=== PATIENT | male | born 1945 | race Caucasian/White ===

== ENCOUNTER 2018-01-27 15:25 | Inpatient (IN) | payer MEDICARE, BC ==
--- OUTSIDE RECORDS SUMMARY | 2018-01-27 15:51 | XMS REPORT ---
:1945 External Reference #:[id number] Author Organization [facility] Address [address] [address] Phone [phone] Care Team Providers Name Role Phone Ruddy Dykes MD Primary Care Physician Unavailable Payers Type Date Identification Numbers Payment Provider Subscriber Medicare Primary Effective: Policy Number: Medicare Marcial Ta 2011 [id number] PayID: [id number] [address] [place] [address] Medigap Part B Effective: 2012 Policy Number: BS Facets Marcial Ta [id number] PayID: [id number] [address] [address] [place] [address] Problems Date Description Provider Status Onset: 05/17/2016 Malignant tumor of bronchus Jonna Cadena MD Active Onset: 05/17/2016 Chronic obstructive lung disease Jonna Cadena MD Active Onset: 06/06/2016 Atrial fibrillation Nehemias Rahman DO [facility] Active Family History Date Family Member(s) Problem(s) Comments General No Current Problems Father Hypertension Father [place] 68 [place]. mother at age 84. sister of brain tumor in her 40's. another 1/2 sister has had multiple PCI's Social History Type Date Description Comments Marital Status Lives With Occupation Retired worked for [employer] Cigarette Use Heavy tobacco smoker (more than 10 cigarettes/day) Cigarette Use Quit 39 days ago ETOH Use Denies alcohol use Recreational Drug Use Denies Drug Use Smoking Heavy tobacco smoker (more than 10 cigarettes/day) Daily Caffeine Consumes on average 3 cups of regular coffee per day Exercise Type/Frequency Does not exercise Allergies, Adverse Reactions, Alerts Date Description Reaction Status Severity Comments 05/03/2014 NKDA active Medications Medication Date Status Form Strength Qnty SIG Indications Ordering Provider Furosemide 11/21 Active Tablets 80mg 90tab 1 by mouth I50.9 Nehemias S. /2017 s everyday Rahman, DO [facility] Finasteride 05/16 Active Tablets 5mg 1 by mouth every day Spironolactone 12/13 Active Tablets 25mg 90tab 1 by mouth I48.91 Nehemias Barajas. s every day Rahman, DO [facility] Levitra Active Tablets 20mg as needed Unknown Simvastatin Active Tablets 20mg 1 by mouth Unknown every day Gabapentin Active Capsules 100mg 4 cap po twice daily Am/PM Dovonex Active Cream 0.005% use on effected area 2 x daily Metoprolol Active Tablets 100mg 225ta take 1 and Nehemias S. Tar bs 1/2 in the , and DO [facility] one at night Losartan Potassium Active 100mg 1 po qd Unknown Amlodipine Active Tablets 10mg 1 by mouth Unknown Bes every day Prazosin HCL Active Capsules 2mg 4 po qhs Trazodone HCL Active Tablets 50mg 1 tablet at Unknown / bedtime as needed Metformin HCL Active Tablets 500mg 2 po bid Unknown Xarelto Active Tablets 20mg 90tab 1 by mouth Nehemias S. s every day Rahman, DO [facility] Duloxetine HCL Active Caps DR 30mg take 1 Unknown Part capsule by mouth daily Lorazepam Active 1/4 tablet Unknown / po as needed Bupropion HCL ER Active Tablets 150mg 90tab 2 tablet po Unknown (XL) ER 24HR s daily Am Phytonandione 05/22 Hx Tablets 5mg Take 2 tabs Jonna /2015 today and 1 Surinder, - tablet in 12/04 the morning /2016 Clonazepam 05/16 Hx Tablets 0.5mg as needed - 12/04 Lovenox 12/25 Hx Solution 120mg/0.8 14uni Inject Nehemias S. ML ts subcutaneou Rahman, - sly twice DO [facility] 12/31 daily /2015 starting this evening 12/26/2015 until further instruction . Warfarin Sodium 12/25 Hx Tablets 5mg 30tab 1 tablet at Nehemias S. s night (Dr. Rahman, - Bael DO [facility] 12/04 adjusts Lasix 11/30 Hx Tablets 20mg 360ta take 4 I50.9 bs tablets by Josiah, - mouth daily DO [facility] 11/21 Xarelto 11/18 Hx Tablets 20mg 90tab 1 by mouth I48.91 s every day Josiah, - DO [facility] 12/25 High Blood 0000 Hx Unknown Pressure Pill /0000 - 11/16 High Cholesterol 00 Hx Unknown Pill /0000 - 11/16 Nightmare Pills 00/00 Hx Unknown /0000 - 11/16 Arthritis Pill 00/00 Hx Unknown /0000 - 11/16 Diabetic Pill 00/00 Hx Unknown /0000 - 11/16 Duloxetine 00/[address] 60mg 1 by mouth Unknown /0000 Part every day - 12/05 Hydrochlorothiazid 00/00 Hx Tablets 25mg 1 by mouth Unknown e /0000 every day - 11/30 Proscar 00/00 Hx Tablets 5mg 1 by mouth Unknown /0000 every day - 05/16 Clonazepam 00/00 Hx Tablets 0.5mg 1/4 tab Q Unknown /0000 days by - mouth as 11/20 Proscar 00/00 Hx Tablets 5mg 1 by mouth Unknown /0000 every day - 05/25 Medications Administered in Office Medication Date Status Form Strength Qnty SIG Indications Ordering Provider Depomedrol Administered Injection Usama F 40MG 017 MD Evelia Depomedrol Administered Injection Usama F 40MG 017 MD Evelia Technetium TC Administered Injection Nehemias S. 99M 016 DO Josiah Tetrofosmin, [facility] Per Unit Dose Up To 40 Millicuries Depomedrol Administered Injection Poornima 80MG 014 KAROLINA Syed Depomedrol Administered Injection Petros Wallace, 80MG 014 M.D. Vital Signs Date Vital Result Comment 12/31/2017 Height 67.5 inches 5'7.50" Heart Rate 89 /min BP Systolic 126 mmHg BP Diastolic 88 mmHg Respiratory Rate 16 /min Body Temperature 98.0 F Pain Level 5 12/11/2017 Height 67.5 inches 5'7.50" Weight 310.00 lb Heart Rate 100 /min BP Systolic 124 mmHg BP Diastolic 84 mmHg Body Temperature 97.7 F Pain Level 5 BMI (Body Mass Index) 47.8 kg/m2 11/21/2017 Height 68 inches 5'8" Weight 308.00 lb with shoes Heart Rate 66 /min BP Systolic Sitting 118 mmHg Rue lrg cuff BP Diastolic Sitting 80 mmHg Rue lrg cuff BP Systolic Standing 122 mmHg Rue lrg cuff BP Diastolic Standing 76 mmHg Rue lrg cuff Respiratory Rate 18 /min BMI (Body Mass Index) 46.8 kg/m2 Ejection Fraction 40-45% date 10/04/2016 ECHO 10/30/2017 Height 68 inches 5'8" Weight 300.00 lb BP Systolic 120 mmHg BP Diastolic 86 mmHg Body Temperature 97.7 F BMI (Body Mass Index) 45.6 kg/m2 09/19/2017 Height 68 inches 5'8" Weight 300.00 lb Heart Rate 68 /min BP Systolic 127 mmHg BP Diastolic 87 mmHg Respiratory Rate 15 /min Pain Level 7 BMI (Body Mass Index) 45.6 kg/m2 05/27/2017 Height 68 inches 5'8" Weight 294.00 lb with boots on Heart Rate 76 /min BP Systolic Sitting 115 mmHg Rue large cuff BP Diastolic Sitting 76 mmHg Rue large cuff BP Systolic Standing 112 mmHg Rue large cuff BP Diastolic Standing 70 mmHg Rue large cuff Respiratory Rate 16 /min BMI (Body Mass Index) 44.7 kg/m2 Ejection Fraction 40-45% echo 09/201603/19/2017 Height 68 inches 5'8" Weight 300.00 lb BP Systolic 111 mmHg BP Diastolic 79 mmHg Respiratory Rate 17 /min Pain Level 1 BMI (Body Mass Index) 45.6 kg/m2 02/11/2017 Height 68 inches 5'8" Weight 300.00 lb Heart Rate 88 /min BP Systolic 138 mmHg BP Diastolic 80 mmHg Respiratory Rate 18 /min Body Temperature 98.6 F Pain Level 9 BMI (Body Mass Index) 45.6 kg/m2 12/05/2016 Height 67 inches 5'7" Weight 289.00 lb with shoes Heart Rate 66 /min BP Systolic Sitting 112 mmHg Rue lg cuff BP Diastolic Sitting 70 mmHg Rue lg cuff BP Systolic Standing 108 mmHg Rue lg cuff BP Diastolic Standing 60 mmHg Rue lg cuff Respiratory Rate 14 /min BMI (Body Mass Index) 45.3 kg/m2 Ejection Fraction 40-45% date 10/04/16 ECHO 06/06/2016 Height 68 inches 5'8" Weight 295.00 lb no shoes Heart Rate 56 /min irreg BP Systolic Sitting 162 mmHg LA lrg cuff BP Diastolic Sitting 88 mmHg LA lrg cuff BP Systolic Standing 140 mmHg LA lrg cuff BP Diastolic Standing 92 mmHg LA lrg cuff Respiratory Rate 20 /min BMI (Body Mass Index) 44.8 kg/m2 Ejection Fraction 45-50% 11/28/15 05/17/2016 Height 68 inches 5'8" Weight 283.00 lb Heart Rate 84 /min BP Systolic 140 mmHg BP Diastolic 80 mmHg Respiratory Rate 14 /min O2 % BldC Oximetry 94 % BMI (Body Mass Index) 43.0 kg/m2 Neck Circumference in inches 19.5 03/05/2016 Height 68 inches 5'8" Weight 283.00 lb With shoes on Heart Rate 72 /min BP Systolic Sitting 120 mmHg LA lrg cuff BP Diastolic Sitting 78 mmHg LA lrg cuff BP Systolic Standing 118 mmHg LA lrg cuff BP Diastolic Standing 76 mmHg LA lrg cuff Respiratory Rate 16 /min BMI (Body Mass Index) 43.0 kg/m2 Ejection Fraction 45-50% 12/26/15 01/02/2016 Height 68 inches 5'8" Weight 278.00 lb with shoes Heart Rate 90 /min BP Systolic Sitting 122 mmHg LA lg cuff BP Diastolic Sitting 90 mmHg LA lg cuff BP Systolic Standing 130 mmHg LA lg cuff BP Diastolic Standing 90 mmHg LA lg cuff Respiratory Rate 17 /min BMI (Body Mass Index) 42.3 kg/m2 12/14/2015 Height 68 inches 5'8" Weight 281.00 lb no shoes Heart Rate 76 /min irregular BP Systolic Sitting 154 mmHg LA large cuff BP Diastolic Sitting 90 mmHg LA large cuff BP Systolic Standing 150 mmHg LA BP Diastolic Standing 94 mmHg LA Respiratory Rate 16 /min BMI (Body Mass Index) 42.7 kg/m2 Ejection Fraction 45-50% 11/28/15 11/30/2015 Height 68 inches 5'8" Weight 276.00 lb Heart Rate 92 /min BP Systolic Sitting 136 mmHg Ra large cuff BP Diastolic Sitting 90 mmHg Ra large cuff BP Systolic Standing 132 mmHg Ra BP Diastolic Standing 92 mmHg Ra Respiratory Rate 16 /min BMI (Body Mass Index) 42.0 kg/m2 Ejection Fraction 45-50% 11/28/15 11/18/2015 Height 68 inches 5'8" Weight 268.00 lb Heart Rate 84 /min BP Systolic Sitting 128 mmHg Ra large cuff BP Diastolic Sitting 82 mmHg Ra large cuff BP Systolic Standing 134 mmHg LA BP Diastolic Standing 82 mmHg LA BP Systolic Lying Down 130 mmHg LA BP Diastolic Lying Down 80 mmHg LA Respiratory Rate 16 /min BMI (Body Mass Index) 40.7 kg/m2 06/16/2014 Height 68 inches 5'8" Weight 285.00 lb Heart Rate 56 /min BP Systolic 126 mmHg BP Diastolic 77 mmHg BMI (Body Mass Index) 43.3 kg/m2 05/03/2014 Height 68 inches 5'8" Weight 295.00 lb Heart Rate 66 /min BP Systolic 160 mmHg BP Diastolic 88 mmHg BMI (Body Mass Index) 44.8 kg/m2 Results Test Date Test Result H/L Range Note Laboratory test 05/23/2016 Point of Care 110 mg/dL High 74-106 1 finding Glucose Laboratory test 05/23/2016 Point of Care 110 mg/dL High 74-106 2 finding Glucose Laboratory test 05/23/2016 Hepatitis C Ab - Nonreactive Nonreactive finding Self Ref Inr/Protime 05/23/2016 Inr 1.55 High 0.89-1.11 Laboratory test 05/23/2016 Hepatitis C Ab - Nonreactive Nonreactive finding Self Ref Inr/Protime 05/23/2016 Inr 1.55 High 0.89-1.11 Laboratory test 05/23/2016 Cytology Non-Hooker Off SEE RESULT BELOW 3 finding Laboratory test 05/23/2016 Cytology Non-Hooker Off SEE RESULT BELOW 4 finding Laboratory test 04/05/2016 Cytology Non-Hooker Off SEE RESULT BELOW 5 finding Basic Metabolic 12/26/2015 Sodium 138 mmol/L 133-145 6 Panel Potassium 4.1 mmol/L 3.5-5.0 6 Chloride 102 mmol/L 101-111 6 Co2 Carbon Dioxide 31 mmol/L 22-32 6 Anion Gap 5 mmol/L 2-11 6 Glucose 144 mg/dL High 70-100 6 Blood Urea Nitrogen 17 mg/dL 6-24 6 Creatinine 0.96 mg/dL 0.67-1.17 6 BUN/Creatinine Ratio 17.7 8-20 6 Calcium 9.2 mg/dL 8.6-10.3 6 Egfr Non- 77.9 >60 6 Egfr 100.2 >60 6, 7 CBC Auto Diff 12/26/2015 White Blood Count 6.2 10^3/uL 3.5-10.8 6 Red Blood Count 5.45 10^6/uL High 4.0-5.4 6 Hemoglobin 17.1 g/dL 14.0-18.0 6 Hematocrit 52 % 42-52 6 Mean Corpuscular Volume 96 fL High 80-94 6 Mean Corpuscular Hemoglobin 31 pg 27-31 6 Mean Corpuscular HGB Conc 33 g/dL 31-36 6 Red Cell Distribution Width 15 % 10.5-15 6 Platelet Count 169 10^3/uL 150-450 6 Mean Platelet Volume 8 um3 7.4-10.4 6 Abs Neutrophils 4.1 10^3/uL 1.5-7.7 6 Abs Lymphocytes 1.3 10^3/uL 1.0-4.8 6 Abs Monocytes 0.5 10^3/uL 0-0.8 6 Abs Eosinophils 0.1 10^3/uL 0-0.6 6 Abs Basophils 0.1 10^3/uL 0-0.2 6 Abs Nucleated RBC 0.01 10^3/uL 6 Granulocyte % 66.2 % 38-83 6 Lymphocyte % 21.1 % Low 25-47 6 Monocyte % 8.6 % 1-9 6 Eosinophil % 2.1 % 0-6 6 Basophil % 2.0 % 0-2 6 Nucleated Red Blood Cells % 0.1 6 Laboratory test finding 12/26/2015 Magnesium 2.1 mg/dL 1.9-2.7 6, 8 Inr/Protime 12/26/2015 Inr 1.55 High 0.89-1.11 6 Laboratory test finding 12/12/2015 Magnesium 2.1 mg/dL 1.9-2.7 9 Basic Metabolic Panel 12/12/2015 Sodium 137 mmol/L 133-145 Potassium 3.8 mmol/L 3.5-5.0 Chloride 100 mmol/L Low 101-111 Co2 Carbon Dioxide 32 mmol/L 22-32 Anion Gap 5 mmol/L 2-11 Glucose 194 mg/dL High 70-100 Blood Urea Nitrogen 14 mg/dL 6-24 Creatinine 0.96 mg/dL 0.67-1.17 BUN/Creatinine Ratio 14.6 8-20 Calcium 9.7 mg/dL 8.6-10.3 Egfr Non- 78.1 >60 Egfr 100.5 >60 10 1 Forestry Instructor: Voddler HARIS 2 Forestry Instructor: [id number] [employer] HARIS 3 SEE RESULT BELOW Name: MARCIAL TA : [address]: Jonna Cadena MD Acct: [id number] Unit: [id number] AGE: 70 Location: OR Re05/23/16 SEX: M Status: REG SDC SPEC: [id number] JANESSA: 05/23/16-[address]: Jonna Cadena MD REQ: [id number] RECD: 05/23/16-151 STATUS: EMIL OTERO DR: Ruddy Trevizo MD _ ORDERED: FN ASP DEEP/2, FNA Imme St Add, LEVEL IV/2, FNA IMMEDIATE S/2 FINAL DIAGNOSIS 1) Lymph node, Station 7, Endobronchial Ultrasound guided, fine needle aspiration: --Benign- mixed reactive lymphocytes and ciliated respiratory epithelium. --No evidence of metastatic carcinoma identified. 2) Lymph node, R4, Endobronchial Ultrasound guided, fine needle aspiration --Benign- reactive lymphocytes and ciliated respiratory epithelium. --No evidence of metastatic carcinoma identified. 1) A cell block was prepared in the evaluation of this specimen. Smears and cell block reveal similar findings. 2) A cell block was prepared in the evaluation of this specimen. Smears and cell block reveal similar findings. 1. BRONCHIAL - US GUIDED ENDOBRONCHIAL STATION 7 FINE NEEDLE ASPIRATION, 2. BRONCHIAL - US GUIDED ENDOBRONCHIAL R4 FINE NEEDLE ASPIRATION CLINICAL HISTORY #1) Station 7, performed in OR. #2) R4, performed in OR. CONTINUED ON NEXT PAGE * ML=Testing performed at Main Lab DEPARTMENT OF PATHOLOGY, [address] [place] [address] Leonardo Ricks M.D. Director [facility] # [id number] RUN DATE: 05/24/16 [facility] LAB LIVE PAGE 2 Patient: KEYONMARCIAL GOMEZ Kayy [id number] (Continued) IMMEDIATE INTERPRETATION (Continued) IMMEDIATE INTERPRETATION 1) Pass 1-inadequate, pass 2-adequate 2) Pass 1-adequate, pass 2-6 for additional material GROSS DESCRIPTION #1) Endobronchial Ultrasound guided (EBUS), fine needle aspiration x 2 passes with 3 Alcohol fixed slide(s) and needle rinse in formalin for cell block. #2) Endobronchial Ultrasound guided (EBUS), fine needle aspiration x 6 passes with 6 Alcohol fixed slide(s) and needle rinse in formalin for cell block. Signed (signature on file) Shameka Mata MD 08/29 1101 END OF REPORT * ML=Testing performed at Main Lab DEPARTMENT OF PATHOLOGY, [address] [place] [address] Leonardo Ricks M.D. Director [facility] # [id number] 4 SEE RESULT BELOW Name: MARCIAL TA : [address]: Jonna Cadena MD Acct: [id number] Unit: [id number] AGE: 70 Location: OR Re05/23/16 SEX: M Status: REG [facility] SPEC: [id number] JANESSA: 05/23/16-[address]: Jonna Cadena MD REQ: [id number] RECD: 05/23/16162 STATUS: EMIL OTERO DR: Ruddy Trevizo MD _ ORDERED: FN ASP DEEP/2, FNA Imme St Add, LEVEL IV/2, FNA IMMEDIATE S/2 FINAL DIAGNOSIS 1) Lymph node, Station 7, Endobronchial Ultrasound guided, fine needle aspiration: --Benign- mixed reactive lymphocytes and ciliated respiratory epithelium. --No evidence of metastatic carcinoma identified. 2) Lymph node, R4, Endobronchial Ultrasound guided, fine needle aspiration --Benign- reactive lymphocytes and ciliated respiratory epithelium. --No evidence of metastatic carcinoma identified. 1) A cell block was prepared in the evaluation of this specimen. Smears and cell block reveal similar findings. 2) A cell block was prepared in the evaluation of this specimen. Smears and cell block reveal similar findings. 1. BRONCHIAL - US GUIDED ENDOBRONCHIAL STATION 7 FINE NEEDLE ASPIRATION, 2. BRONCHIAL - US GUIDED ENDOBRONCHIAL R4 FINE NEEDLE ASPIRATION CLINICAL HISTORY #1) Station 7, performed in OR. #2) R4, performed in OR. CONTINUED ON NEXT PAGE * ML=Testing performed at Main Lab DEPARTMENT OF PATHOLOGY, [address] [place] [address] Leonardo Ricks M.D. Director [facility] # [id number] RUN DATE: 05/24/16 [facility] LAB LIVE PAGE 2 Patient: MARCIAL TA [id number] (Continued) IMMEDIATE INTERPRETATION (Continued) IMMEDIATE INTERPRETATION 1) Pass 1-inadequate, pass 2-adequate 2) Pass 1-adequate, pass 2-6 for additional material GROSS DESCRIPTION #1) Endobronchial Ultrasound guided (EBUS), fine needle aspiration x 2 passes with 3 Alcohol fixed slide(s) and needle rinse in formalin for cell block. #2) Endobronchial Ultrasound guided (EBUS), fine needle aspiration x 6 passes with 6 Alcohol fixed slide(s) and needle rinse in formalin for cell block. Signed (signature on file) Shameka Mata MD 08/29 1101 END OF REPORT * ML=Testing performed at Main Lab DEPARTMENT OF PATHOLOGY, [address] [place] [address] Leonardo Ricks M.D. Director [facility] # [id number] 5 SEE RESULT BELOW Name: KEYONMARCIAL : [address]: Glen Trevizo MD Acct: [id number] Unit: [id number] AGE: 70 Location: Re04/05/16 SEX: M Status: REG REF SPEC: [id number] JANESSA: 04/05/16-[address] [facility] [address]: Gray Lawson MD REQ: [id number] RECD: 04/05/16-2 STATUS: EMIL OTERO DR: Glen Trevizo MD _ ORDERED: FN ASP DEEP, PTH HANDLING CH, LEVEL IV/2, FNA IMMEDIATE S, Cytokeratin 5 P63-ADD, TTF1-ADD, ALK STAIN ADDIT EGFR has been performed at [facility], [place], [place]. The testing reveals: / Addendum Signed (signature on file) Leonardo Ricks MD 1743 Addendum: An immunohistochemical stain for ALK was performed with appropriate controls and is negative. This study indicates no evidence of ALK overexpression as a result of ALK translocation. 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 Addendum Signed (signature on file) Shameka Mata MD 1355 FINAL DIAGNOSIS Lung, right upper lobe, CT Guided, fine needle aspiration: --Malignant -adenocarcinoma. CONTINUED ON NEXT PAGE * ML=Testing performed at Main Lab DEPARTMENT OF PATHOLOGY, [address] [place] [address] Leonardo Ricks M.D. Director [place] # [id number] RUN DATE: 04/12/16 [facility] LAB LIVE PAGE 2 Patient: MARCIAL TA [id number] (Continued) FINAL DIAGNOSIS (Continued) A cell block was prepared in the evaluation of this specimen. Smears and cell block reveal similar findings. LUNG RIGHT - CT GUIDED RIGHT LUNG FINE NEEDLE ASPIRATION CLINICAL HISTORY 2.3 cm right upper lobe lung lesion IMMEDIATE INTERPRETATION Pass 1-adequate, pass 2 for additional material GROSS DESCRIPTION CT Guided, fine needle aspiration x 2 passes with 2 Alcohol fixed slide(s) and 2 needle rinse in formalin for cell blocks labeled [id number] and [id number] Signed (signature on file) Leonardo Ricks MD 1519 END OF REPORT * ML=Testing performed at Main Lab DEPARTMENT OF PATHOLOGY, [address] [place] [address] Leonardo Ricks M.D. Director [facility] # [id number] 6 CALL RESULTS TO [phone] 7 Because ethnic data is not always readily available, this report includes an eGFR for both -Americans and non- Americans. The National Kidney Disease Education Program (NKDEP) does not endorse the use of the MDRD equation for patients that are not between the ages of 18 and 70, are , have extremes of body size, muscle mass, or nutritional status, or are non- or non-. According to the National Kidney Foundation, irrespective of diagnosis, the stage of the disease is based on the level of kidney function: Stage Description GFR(mL/min/1.73 m(2)) 1 Kidney damage with normal or decreased GFR 90 2 Kidney damage with mild decrease in GFR 60-89 3 Moderate decrease in GFR 30-59 4 Severe decrease in GFR 15-29 5 Kidney failure <15 (or dialysis) 8 CALL RESULTS TO [phone] 9 in about 2 weeks 10 Because ethnic data is not always readily available, this report includes an eGFR for both -Americans and non- Americans. The National Kidney Disease Education Program (NKDEP) does not endorse the use of the MDRD equation for patients that are not between the ages of 18 and 70, are , have extremes of body size, muscle mass, or nutritional status, or are non- or non-. According to the National Kidney Foundation, irrespective of diagnosis, the stage of the disease is based on the level of kidney function: Stage Description GFR(mL/min/1.73 m(2)) 1 Kidney damage with normal or decreased GFR 90 2 Kidney damage with mild decrease in GFR 60-89 3 Moderate decrease in GFR 30-59 4 Severe decrease in GFR 15-29 5 Kidney failure <15 (or dialysis) Procedures Date CPT Code Description Status 09/19/201798172 Inject/Drain Joint/Bursa Major Completed 05/27/2017 48571 EKG Tracing & Interpretation Completed 02/11/201772398 Inject/Drain Joint/Bursa Major Completed 12/05/2016 92001 EKG Tracing & Interpretation Completed 10/04/2016 72285 ECHO Transthorasic Realtime 2D W Doppler & Color Completed Flow Hosp 10/04/2016 88776 EKG, Interpretation Only Completed 05/23/2016 08247 With Endobronchial Ultrasound Guided Completed 04/17/2016 73275 Diffusing Capacity Completed 04/17/2016 04770 Spirometry Incl Graphic Record Completed 12/26/2015 74699 Echocardiography, Transesophageal, Real Time W/Image 2D Completed W/W/O M-M 12/26/2015 20265 Pulse Wave/Continuous-Interp.RPT Completed 12/26/2015 07662 Color Flow Doppler/Interp & Reprt Completed 11/28/2015 41903 ECHO Transthoracic, Real-Time 2D With Doppler And Color Completed Flow 11/23/2015 57293 Stress Test Completed 11/23/2015 50473 Myocardial Perfusion Imaging Tomographic (Spect) Completed Multiple Studies 11/18/2015 13375 EKG Tracing & Interpretation Completed 05/03/2014 05010 Xray Knee 3 Views Completed 05/03/2014 21047 Xray Knee 3 Views Completed 05/03/2014 63020 Rad Exam; Knee, Ap&L Completed 05/03/2014 14249 Rad Exam; Knee, Ap&L Completed 05/03/2014 11320 Inject/Drain Joint/Bursa Major Completed 05/03/2014 42882 Inject/Drain Joint/Bursa Major Completed 03/25/2013 05797 Polysomnography Sleep Staging 4+ Parameters Completed Encounters Type Date Location Provider CPT E/M Dx Office Visit 12/11/2017 [facility] Usama Sultana Evelia, 84326 S46.012A 1:15p Of Katherine RAINEY M75.52 S46.012D Office Visit 11/21/2017 3:40p [facility] [place] [address] I50.9 [facility] FACC I48.1 F17.201 I10 E78.5 E66.9 E11.69 G47.33 J44.9 Office Visit 10/30/2017 3:30p [facility] Usama Sultana 91765 S46.012A Of Katherine Altamirano MD M75.52 S46.012D Office Visit 09/19/2017 1:00p [facility] Usama Sultana 14859 S46.012A Of Katherine Altamirano MD M75.52 Office Visit 05/27/2017 1:40p [place] [address] I50.9 [facility] FACC I48.1 Z72.0 Office Visit 03/19/2017 1:00p [facility] Usama Sultana Evelia, 94278 M25.561 Of Katherine RAINEY M17.11 M25.461 Office Visit 02/11/2017 1:30p [facility] Usama Sultana Evelia, 14479 M25.561 Of Katherine RAINEY M17.11 M25.461 Office Visit 12/05/2016 1:40p [place] [address] I48.91 [facility] FACC I50.9 Office Visit 10/05/2016 10:05a [facility],pc Dylan Kothari, 81887 I50.9 Hospitalists Ashley I48.91 J44.9 I10 Office Visit 10/04/2016 10:04a [facility] Bebe Abebe, 60574 I50.9 Assoc,pc [employer] Hospitalists I48.91 J44.9 I10 Office Visit 10/04/2016 11:19a [facility] [place] [address] I50.43 [facility] FACC I48.91 I10 E78.5 Office Visit 10/03/2016 10:03a [facility], Fidencio De La Rosa, 18879 I50.9 Hospitalists N.P. I48.91 J44.9 I10 Office Visit 10/03/2016 9:34a [facility] [place] [address] I50.43 [facility]ensing Specialist FACC I48.91 I10 E78.5 E66.9 Z87.891 Office Visit 06/06/2016 1:40p [facility] [place] [address] I48.91 [facility] FACC I50.9 Z87.891 E66.9 D02.21 I10 E11.69 G47.33 Office Visit 05/29/2016 11:20a [facility] Glen Trevizo M.D. 72727 C34.11 Of [facility] [place] R70.0 Office Visit 05/17/2016 7:30a [place] [address] C34.11 Services Of [facility] R06.09 Z87.891 E66.9 Office Visit 05/01/2016 1:00p Rust [place] Trevizo M.D. 71285 D02.21 Of Remote Sensing Specialist At [place] R70.0 Office Visit 03/05/2016 1:40p [facility] [place] [address] I48.91 Remote Sensing Specialist FACC I50.9 I10 E11.69 E66.8 F17.201 G47.33 Office Visit 01/02/2016 2:00p [facility] [place] [address] I50.9 Remote Sensing Specialist FACC I48.91 I10 E11.69 E66.8 F17.201 G47.33 Office Visit 12/14/2015 1:40p [facility] [place] [address] I48.91 Remote Sensing Specialist FACC I50.9 I10 E11.69 E66.8 F17.201 G47.33 Office Visit 11/30/2015 2:40p [facility] [place] [address] I50.9 Remote Sensing Specialist FACC I48.91 I10 E11.69 E66.8 F17.201 G47.33 Office Visit 11/18/2015 1:15p [place] [place] [address] I48.91 Remote Sensing Specialist At [facility] R06.00 I10 E11.69 E66.8 F17.201 Office Visit 06/16/2014 10:45a Orthopedic [facility] Of Petros Wallace M.D. 97326 716.96 C.M.A. Office Visit 05/03/2014 2:45p Orthopedic Services Of Poornima Syed, 69789 727.51 C.M.A. RPA-C 715.96 727.51 715.96 Office Visit 06/11/2013 1:40p [facility] Maykel Castillo M.D. 00638 327.23 Office Visit 04/03/2013 1:11p Sleep [facility] Maykel Castillo M.D. 65578 327.23 Office Visit 01/06/2013 2:39p [facility], [address] 786.09 Disorder Center Ashley 780.79 Plan of Care Future Appointment(s):02/11/2018 1:00 pm - Usama Altamirano MD at [facility]12/31/2017 - Usama Altamirano, MDS46.012D Strain of musc/tend the rotator cuff of left shoulder, subsNew Therapy:Physical TherapyFollow up:Follow up: 6 isydxI30.52 Bursitis of left gkpimrwwU89.012 Primary osteoarthritis, left shoulder
[2018-01-27] MEDS ORDERED: NS 0.9% 1000 ML* 1,000 ML IV SCH (17:30)
--- NOTE | 2018-01-27 17:59 | RAD ---
INDICATION: Head injury. COMPARISON: Comparison is made with a prior CT of the brain from every 2008 and a prior MRI of the brain from April 17, 2016. TECHNIQUE: Contiguous axial sections of the brain were obtained from the skull base to the vertex without contrast. FINDINGS: The ventricles and cisterns appear within normal limits. There are areas of decreased attenuation present bilaterally in the inferior portion of both frontal lobes which correlate with the prior MRI abnormalities likely representing areas of encephalomalacia. No other focal abnormality or mass effect is seen. There is no evidence for hemorrhage. The patient is status post bilateral frontal craniotomies. There is opacification of both frontal sinuses which appears similar to the prior MRI exam. The visualized portion of the paranasal sinuses otherwise appear clear. The mastoid air cells appear clear. There is deformity of the medial wall of the left orbit which is unchanged most consistent with an old fracture. IMPRESSION: 1. NO EVIDENCE FOR ACUTE INTRACRANIAL NORMALITY. 2. FINDINGS CONSISTENT WITH BILATERAL FRONTAL LOBE ENCEPHALOMALACIA PRESUMABLY POSTSURGICAL. 3. OPACIFICATION OF THE FRONTAL SINUSES, UNCHANGED FROM THE PRIOR MR STUDY. 4. OLD FRACTURE OF THE MEDIAL WALL OF THE LEFT ORBIT, UNCHANGED.
[2018-01-27 18:17] LABS: ABS Basophils 0.1 10^3/ul (0-0.2); ABS Eosinophils 0 10^3/ul (0-0.6); ABS Lymphocytes 1.1 10^3/ul (1.0-4.8); ABS Neutrophils 13.5 10^3/ul (1.5-7.7); ABS Nucleated RBC 0 10^3/ul; Eosinophil % 0 % (0-6); Hematocrit 45 % (42-52); Hemoglobin 15.4 g/dl (14.0-18.0); Lymphocyte % 6.7 % (25-47); Mean Corpuscular HGB Conc 35 g/dl (31-36); Mean Corpuscular Hemoglobin 34 pg (27-31); Mean Corpuscular Volume 99 fL (80-94); Nucleated Red Blood Cells % 0.1; Platelet Count 159 10^3/ul (150-450); Red Blood Count 4.54 10^6/ul (4.0-5.4); Red Cell Distribution Width 15 % (10.5-15); White Blood Count 15.7 10^3/ul (3.5-10.8)
[2018-01-27 18:33] LABS: EGFR Non-African American 56.1 (>60)
[2018-01-27] MEDS ORDERED: Azithromycin IV(*) 500 MG in NS 0.9% 250 ML* 250 ML IVPB ONE (18:41)
[2018-01-27] MEDS ORDERED: cefTRIAXone(*) 1 GM in NS 0.9% 50 ML* 50 ML IVPB ONE (18:41)
[2018-01-27] MEDS ORDERED: Albuterol/Ipratropium NEB.SOL* Albuterol 2.5 MG/Ipratropium 0.5 MG 3 ML INH ONE (18:49)
[2018-01-27] MEDS ORDERED: NS 0.9% 1000 ML* 2,000 ML IV ONE (18:49)
--- NOTE | 2018-01-27 18:58 | RAD ---
INDICATION: Altered mental status. COMPARISON: Comparison is made with a prior chest x-ray study from January 09, 2017. TECHNIQUE: A portable view of the chest was obtained. FINDINGS: The heart is within normal limits in size. There is mild prominence of the interstitial markings which are unchanged. No focal infiltrate or pleural effusion is seen. IMPRESSION: NO EVIDENCE FOR ACUTE FINDING.
--- NOTE | 2018-01-27 19:06 | ED ---
Ligia Dalal Thomas, scribed for Geovani Swenson MD on 01/27/18 at 1739 . Complex/Multi-Sys Presentation - HPI Summary HPI Summary: The patient is a 72 year old male presenting with balance disruption and fatigue that began yesterday morning. He describes a sensation of being off balance but he denies a spinning sensation. The patient suspects that yesterday , he took his evening medication twice--once in the morning and once in the evening. The patient is on metoprolol, metformin, simvastatin, gabapentin, amlodipine, and trazodone. The patient is accompanied by his daughter, who states that he may have had left-sided eye dropping earlier this morning that is relieved. The patient denies focal weakness. - History Of Current Complaint Chief Complaint: EDAltMentalStatus Time Seen by Provider: 01/27/18 16:55 Hx Obtained From: Patient Onset/Duration: Still Present Aggravating Factor(s): Possible medication overdose Alleviating Factor(s): None Associated Signs And Symptoms: Positive: Other - Possible left eye droop, off balance; NEGATIVE: focal weakness - Allergies/Home Medications Allergies/Adverse Reactions: Allergies Allergy/AdvReac Type Severity Reaction Status Date / Time No Known Allergies Allergy Verified 12/18/17 12:12 Home Medications: Home Medications Metoprolol Tartrate TAB* [Lopressor TAB*] 100 mg PO QPM 01/27/18 [History Confirmed 01/27/18] PMH/Surg Hx/FS Hx/Imm Hx Endocrine/Hematology History: Reports: Hx Diabetes - TYPE 2 Cardiovascular History: Reports: Hx Congestive Heart Failure, Hx Hypercholesterolemia, Hx Hypertension - ON MEDICATION, Other Cardiovascular Problems/Disorders - STATES HE HAS A BLOOD CLOT IN THE HEART Denies: Hx Pacemaker/ICD, Hx Peripheral Vascular Disease Respiratory History: Reports: Hx Sleep Apnea, Other Respiratory Problems/ Disorders - smoker History: Reports: Hx Benign Prostatic Hyperplasia, Hx Kidney Stones - HX OF, 1979 Denies: Hx Renal Disease Musculoskeletal History: Reports: Hx Arthritis - osteo, HANDS, Hx Gout Denies: Hx Osteoporosis Sensory History: Reports: Hx Contacts or Glasses - GLASSES, Hx Hearing Aid Opthamlomology History: Reports: Hx Contacts or Glasses - GLASSES Neurological History: Denies: Hx Headaches, Hx Seizures, Hx Transient Ischemic Attacks (TIA) Psychiatric History: Reports: Hx Anxiety - CONTROL WITH, Hx Depression, Hx Post Traumatic Stress Disorder - Does not like doors closed when he is in a room., Hx Community Mental [facility] Tx [facility] Denies: Hx Panic Disorder - Cancer History Cancer Type, Location and Year: lung CA Hx Chemotherapy: No Hx Radiation Therapy: Yes - Surgical History Surgery Procedure, Year, and Place: ANEURYSM SURGERY 2008-NO CLIPS OR COILS(WE HAVE OPERATIVE REPORT WHICH WAS OK'D BY DR HUANG 02/28/2012) [place]. RIGHT SHOULDER, [facility] - PINS WERE REMOVED - NO METAL REMAINS. DEVIATED SEPTUM, OFFICE. KIDNEY STONE 1979, [facility] Hx Anesthesia Reactions: No Infectious Disease History: No Infectious Disease History: Denies: Traveled Outside the [place] in Last 30 Days - Family History Known Family History: Positive: Cardiac Disease - Father [place] at 68, Hypertension Family History: FHx of a brain tumor - sister - Social History Alcohol Use: None Substance Use Type: Reports: None Smoking Status (MU): Current Every Day Smoker Type: Cigarettes Amount Used/How Often: LESS THAN A PPD FOR MANY YEARS Have You Smoked in the Last Year: Yes Review of Systems Negative: Fever Negative: Epistaxis Neurological: Other - Possible left-sided eye droopm, off balance Negative: Weakness All Other Systems Reviewed And Are Negative: Yes Physical Exam - Summary Physical Exam Summary: General: well-appearing, no pain distress Skin: warm, color reflects adequate perfusion, dry Head: normal Eyes: EOMI, JOANNE ENT: The left pinna is erythematous and swollen. The left ear canal is erythematous and swollen. Neck: supple, nontender Respiratory: CTA, breath sounds present Cardiovascular: Tachycardia. Regular rhythm. Abdomen: soft, nontender Bowel: present Musculoskeletal: normal, strength/ROM intact Neurological: normal, sensory/motor intact, A&O x3 Psychological: affect/mood appropriate Triage Information Reviewed: Yes Vital Signs On Initial Exam: Initial Vitals Temp Pulse Resp BP Pulse Ox 99.3 F 111 24 134/96 93 01/27/18 15:28 01/27/18 15:28 01/27/18 15:28 01/27/18 15:28 01/27/18 15:28 Vital Signs Reviewed: Yes Diagnostics - Vital Signs Vital Signs Temp Pulse Resp BP Pulse Ox 01/27/18 17:12 17 01/27/18 17:09 131/77 04/16/18 15:28 99.3 F 111 24 134/96 93 - Laboratory Lab Results: Lab Results 01/27/18 01/27/18 01/27/18 Range/Units 18:00 18:00 18:00 WBC (3.5-10.8) 10^3/ul RBC (4.0-5.4) 10^6/ul Hgb (14.0-18.0) g/dl Hct (42-52) % MCV (80-94) fL MCH (27-31) pg MCHC (31-36) g/dl RDW (10.5-15) % Plt Count (150-450) 10^3/ul MPV (7.4-10.4) um3 Neut % (Auto) (38-83) % Lymph % (Auto) (25-47) % [place] % (Auto) (0-7) % Eos % (Auto) (0-6) % Baso % (Auto) (0-2) % Absolute Neuts (auto) (1.5-7.7) 10^3/ul Absolute Lymphs (auto) (1.0-4.8) 10^3/ul Absolute Monos (auto) (0-0.8) 10^3/ul Absolute Eos (auto) (0-0.6) 10^3/ul Absolute Basos (auto) (0-0.2) 10^3/ul Absolute Nucleated RBC 10^3/ul Nucleated RBC % INR (Anticoag Therapy) 1.50 H (0.77-1.02) APTT 40.1 H (26.0-36.3) seconds D-Dimer, Quantitative < 200 (Less Than 230) ng/mL Carbon Monoxide Screen (<4.0) % Sodium 137 L (139-145) mmol/L Potassium 3.5 (3.5-5.0) mmol/L Chloride 99 L (101-111) mmol/L Carbon Dioxide 28 (22-32) mmol/L Anion Gap 10 (2-11) mmol/L BUN 16 (6-24) mg/dL Creatinine 1.27 H (0.67-1.17) mg/dL Est GFR ( Amer) 72.1 (>60) Est GFR (Non-Af Amer) 56.1 (>60) BUN/Creatinine Ratio 12.6 (8-20) Glucose 132 H (70-100) mg/dL Lactic Acid (0.5-2.0) mmol/L Calcium 9.1 (8.6-10.3) mg/dL Magnesium 1.5 L (1.9-2.7) mg/dL Total Bilirubin 1.60 H (0.2-1.0) mg/dL AST 15 (13-39) U/L ALT 15 (7-52) U/L Alkaline Phosphatase 58 (34-104) U/L Ammonia 37 (16-53) mcmol/L Total Creatine Kinase 209 (10-223) U/L CK-MB (CK-2) 5.4 (0.6-6.3) ng/mL Troponin I 0.03 (<0.04) ng/mL C-Reactive Protein 55.04 H (< 5.00) mg/L B-Natriuretic Peptide 383 H ( - 100) pg/mL Total Protein 6.4 (6.4-8.9) g/dL Albumin 4.0 (3.2-5.2) g/dL Globulin 2.4 (2-4) g/dL Albumin/Globulin Ratio 1.7 (1-3) Lipase 34 (11.0-82.0) U/L TSH Pending Acetaminophen < 15 mcg/mL 01/27/18 01/27/18 01/27/18 Range/Units 18:00 18:00 18:20 WBC 15.7 H (3.5-10.8) 10^3/ul RBC 4.54 (4.0-5.4) 10^6/ul Hgb 15.4 (14.0-18.0) g/dl Hct 45 (42-52) % MCV 99 H (80-94) fL MCH 34 H (27-31) pg MCHC 35 (31-36) g/dl RDW 15 (10.5-15) % Plt Count 159 (150-450) 10^3/ul MPV 8.0 (7.4-10.4) um3 Neut % (Auto) 86.4 H (38-83) % Lymph % (Auto) 6.7 L (25-47) % [place] % (Auto) 6.3 (0-7) % Eos % (Auto) 0 (0-6) % Baso % (Auto) 0.6 (0-2) % Absolute Neuts (auto) 13.5 H (1.5-7.7) 10^3/ul Absolute Lymphs (auto) 1.1 (1.0-4.8) 10^3/ul Absolute Monos (auto) 1.0 H (0-0.8) 10^3/ul Absolute Eos (auto) 0 (0-0.6) 10^3/ul Absolute Basos (auto) 0.1 (0-0.2) 10^3/ul Absolute Nucleated RBC 0 10^3/ul Nucleated RBC % 0.1 INR (Anticoag Therapy) (0.77-1.02) APTT (26.0-36.3) seconds D-Dimer, Quantitative (Less Than 230) ng/mL Carbon Monoxide Screen 4.0 (<4.0) % Sodium (139-145) mmol/L Potassium (3.5-5.0) mmol/L Chloride (101-111) mmol/L Carbon Dioxide (22-32) mmol/L Anion Gap (2-11) mmol/L BUN (6-24) mg/dL Creatinine (0.67-1.17) mg/dL Est GFR ( Amer) (>60) Est GFR (Non-Af Amer) (>60) BUN/Creatinine Ratio (8-20) Glucose (70-100) mg/dL Lactic Acid 2.1 H* (0.5-2.0) mmol/L Calcium (8.6-10.3) mg/dL Magnesium (1.9-2.7) mg/dL Total Bilirubin (0.2-1.0) mg/dL AST (13-39) U/L ALT (7-52) U/L Alkaline Phosphatase (34-104) U/L Ammonia (16-53) mcmol/L Total Creatine Kinase (10-223) U/L CK-MB (CK-2) (0.6-6.3) ng/mL Troponin I (<0.04) ng/mL C-Reactive Protein (< 5.00) mg/L B-Natriuretic Peptide ( - 100) pg/mL Total Protein (6.4-8.9) g/dL Albumin (3.2-5.2) g/dL Globulin (2-4) g/dL Albumin/Globulin Ratio (1-3) Lipase (11.0-82.0) U/L TSH Acetaminophen mcg/mL Result Diagrams: 01/27/18 18:00 01/27/18 18:00 Lab Statement: Any lab studies that have been ordered have been reviewed, and results considered in the medical decision making process. - Radiology CXR Xray Interpretation: No Acute Changes - IMPRESSION: No evidence for acute finding. Dr. Swenson has reviewed this report. Radiology Interpretation Completed By: Radiologist - CT CT Brain CT Interpretation: No Acute Changes - IMPRESSION: 1. NO EVIDENCE FOR ACUTE INTRACRANIAL NORMALITY. 2. FINDINGS CONSISTENT WITH BILATERAL FRONTAL LOBE ENCEPHALOMALACIA PRESUMABLY POSTSURGICAL. 3. OPACIFICATION OF THE FRONTAL SINUSES, UNCHANGED FROM THE PRIOR MR STUDY. 4. OLD FRACTURE OF THE MEDIAL WALL OF THE LEFT ORBIT, UNCHANGED. Dr. Swenson has reviewed this report. CT Interpretation Completed By: Radiologist - EKG 16:58 Cardiac Rate: Tachycardia EKG Interpretation: Rapid A-Fib. Multiple PVCs. Complex Multi-Symp Course/Dx Course Of Treatment: WILL START ROCEPHIN/AZITHROMYCIN FOR PRESUMED RESPIRATORY SOURCE OF INFECTION. ALSO HAS SOME CELLULITIS IN LEFT PINNAE. LESS THAN 30ML/ KG BOLUS ORDERED DUE TO CONCERN OF CHF. DISCUSSED WITH DR MURRAY, HOSPITALIST. ADMIT HOSPITALIST. CRITICAL CARE TIME LESS THAN 30 MINUTES. Assessment/Plan: Medications reviewed. BP noted and patient urged to follow up with primary care. - Diagnoses Provider Diagnoses: Hypertension, Bronchitis, COPD (chronic obstructive pulmonary disease), Cellulitis Discharge - Sign-Out/Discharge Documenting (check all that apply): Discharge - Discharge Plan Condition: Stable Disposition: ADMITTED TO [facility] Referrals: Ruddy Dykes MD [Primary Care Provider] - - Billing Disposition and Condition Condition: STABLE Disposition: [facility] [place] The documentation as recorded by the Ligia hallman Thomas accurately reflects the service I personally performed and the decisions made by , Geovani Swenson MD.
[2018-01-27] MEDS ORDERED: Al Hydrox/Mg Hydrox/Simet LIQ* 30 ML UDC PO PRN (19:55)
[2018-01-27] MEDS ORDERED: Docusate CAP* 100 MG PO PRN (19:55)
[2018-01-27] MEDS ORDERED: Senna TAB PO PRN (19:55)
[2018-01-27] MEDS ORDERED: Ondansetron INJ* 2 MG/ML VIAL IV PRN (19:55)
[2018-01-27] MEDS ORDERED: Magnesium Sulfate 2 GM IV* 2 GM/50 ML BAG IVPB ONE (20:01)
[2018-01-27] MEDS ORDERED: Potassium Chlor TAB* 20 MEQ TAB.ER PO ONE (20:01)
[2018-01-27] MEDS ORDERED: Dextrose 50% Syringe 50 ML* 25 GM/50 ML SYRINGE IV PUSH PRN (20:03)
[2018-01-27] MEDS ORDERED: Nicotine Inhaler* 10 MG AMP INH PRN (20:04)
[2018-01-27] MEDS ORDERED: Mouth Piece, Nicotine* 1 EACH CARTRIDGE INH PRN ×2 (20:04)
[2018-01-27 20:18] LABS: Urine Appearance Clear; Urine Blood 1+ (Negative); Urine Color Yellow; Urine Ketones Negative (Negative); Urine Protein Negative (Negative); Urine Specific Gravity 1.013 (1.010-1.030); Urine Urobilinogen Negative (Negative)
[2018-01-27] MEDS ORDERED: Gabapentin CAP(*) 100 MG PO PRN (20:18)
[2018-01-27] MEDS: Acetaminophen TAB* 325 MG PO PRN (20:18)
[2018-01-27] MEDS: Metoprolol Tartrate TAB* 25 MG PO SCH (21:32)
[2018-01-27] MEDS: Atorvastatin* 10 MG TAB PO SCH (21:33)
[2018-01-27] MEDS: Gabapentin CAP(*) 100 MG PO SCH (21:33)
[2018-01-27] MEDS: CMCS:Melatonin (NF) 3 MG TAB PO SCH (21:33)
[2018-01-27] MEDS ORDERED: LORazepam TAB(*) 0.5 MG PO PRN (21:36)
--- NOTE | 2018-01-27 23:37 | HP ---
CC: Ruddy Dykes MD. * HISTORY AND PHYSICAL: DATE OF ADMISSION: 01/27/18 TIME OF EVALUATION: 1999. PRIMARY CARE PHYSICIAN: Ruddy Bauer MD. CHIEF COMPLAINT: Altered mental status and lightheadedness. HISTORY OF PRESENT ILLNESS: This is a 72-year-old male with a past medical history of AFib on anticoagulation, COPD who presents to the emergency room after not feeling well last night. He states every time he stood up he felt very disoriented, lightheaded. He denies feeling like he was going to pass out or dizzy. He states he has been sleeping more. He denies any change in his respiratory symptoms. He states he always has a cough and he is always short of breath especially with exertion. No chest pain. He has been nauseated. He has chronic diarrhea. He is noted some left ear discomfort over the past few days. He wears hearing aids in both his ears. He states he has been trying to cut back on smoking, but has not been successful and he has been gaining weight as well while trying to quit. He states he has gained about 20 pounds in the last few months. He denies any urinary symptoms. No abdominal pain. No headaches. He states he feels better. His daughter, Chioma, is at the bedside and feels his orientation has improved as well. Otherwise remaining review of systems is negative in addition to no shortness of breath. In the emergency room, the patient had labs and imaging. He was given DuoNeb, azithromycin, ceftriaxone, and was referred to the hospitalist service for further evaluation. PAST MEDICAL HISTORY: 1. History of lung cancer, status post radiation and remission. 2. Atrial fibrillation on anticoagulation. Followed by Dr. Rahman. 3. COPD on room air. 4. BPH. 5. Hyperlipidemia. 6. Diabetes. 7. History of CHF, unspecified. 8. Hard of hearing, wears bilateral hearing aids. 9. Obstructive sleep apnea on CPAP. 10. Hypertension. 11. Neuropathy. MEDICATIONS: 1. Albuterol 2 puffs every 4 hours as needed. 2. Symbicort b.i.d. 3. Simvastatin 20 mg p.o. at bedtime. 4. Metformin 1000 mg p.o. b.i.d. 5. Metoprolol tartrate 100 mg p.o. at bedtime. 6. Lopressor 150 mg p.o. in the morning. 7. Amlodipine 10 mg daily. 8. Spironolactone 25 mg daily. 9. Xarelto 20 mg daily. 10. Cozaar 100 mg p.o. daily. 11. Gabapentin 100 to 300 mg p.o. t.i.d. as needed. He does take 100 mg at bedtime. 12. Lasix 80 mg in the morning. ALLERGIES: No known drug allergies. FAMILY HISTORY: Reviewed and noncontributory. SOCIAL HISTORY: The patient lives alone. He is independent of his ADLs. He states he has been smoking on and off for the past 56 years. He smokes up to 1 to 1-1/2 packs per day. No alcohol or illicit drug use. His healthcare proxy is his daughter, Chioma Landon. CODE STATUS: Full code. REVIEW OF SYSTEMS: A 14-point review of systems as mentioned in the HPI, otherwise negative. PHYSICAL EXAMINATION GENERAL: No acute distress. Resting comfortably with his daughter at the bedside. VITAL SIGNS: T-max 102.3, pulse rate 113, respiratory rate 25, oxygen saturation 96% on room air, and blood pressure 92/74. HEENT: Head normocephalic. Pupils equal and reactive, anicteric. Oropharynx: Mucous membranes moist. No erythema or exudate. Ears: Patient with an edematous, erythematous left ear. His TM and external auditory canal are within normal limits bilaterally. No fluctuance, induration or purulent drainage on the left ear. No mastoid tenderness. NECK: Supple. No adenopathy. RESPIRATORY: Diminished breath sounds. Prolonged expiratory phase with bilateral expiratory wheezing. No increased work of breathing. CARDIAC: Rapid, irregularly irregular rate and rhythm. Soft systolic murmur throughout. ABDOMEN: Morbidly obese, soft, nontender, nondistended. EXTREMITIES: Trace pretibial edema. +1 DP. NEUROLOGIC: Alert and oriented x3. No gross focal neurologic deficits. LABORATORY DATA: White count 15.7, hemoglobin 15.4, hematocrit 45, platelets 159, INR is 1.5. D-dimer less than 200. Carbon monoxide is 4. Sodium 137, potassium 3.5, chloride 99, bicarb 28, BUN 16, creatinine 1.27, glucose 132 , lactic acid 2.1, mag 1.5, total bili 1.6, CRP 65, troponin 0.03, BNP 383, TSH 0.53. RADIOGRAPHIC DATA: Head CT, no evidence for acute intracranial abnormality. Findings consistent with bilateral frontal lobe encephalomalacia, opacification of frontal sinuses, old fracture of the medial wall of the left orbit unchanged. EKG shows atrial fibrillation with a rate of 129 with PVCs present. Chest x-ray, no evidence for acute finding. ASSESSMENT: This is a 72-year-old male with past medical history of multiple comorbidities including atrial fibrillation on anticoagulation, chronic obstructive pulmonary disease, tobacco use and diabetes who presents to the emergency room with 2 days of disorientation and lightheadedness. 1. Disorientation and lightheadedness. Assessment: The patient meet systemic inflammatory response syndrome criteria. I suspect he has sepsis secondary to cellulitis of his left ear. His respiratory findings are unchanged including negative chest x-ray. He did spike to 102 in the emergency room and is tachy and hypotensive. Plan: We will follow up on obtaining blood cultures. I will continue him on ceftriaxone for presumed cellulitis. We will check influenza swab as well and continue him on LR, we will give him another bolus and maintenance fluids. We will hold his antihypertensives and Lasix overnight. 2. Acute kidney injury. The patient with mild bump in his creatinine likely secondary to purulent azotemia. As mentioned, we will hold his antihypertensive , volume replacement and repeat his labs in the morning. 3. Chronic medical problems: a. Atrial fibrillation. The patient is in rapid afib in the setting of sepsis febrile illness. We will replete his potassium, mag and give him fluids and continue his Xarelto and presume he will be better rate controlled, if not will start IV lopressor. We will start him on a low dose metoprolol this evening from his home dose. b. Diabetes. The patient on only metformin at home. We will check hemoglobin A1c and place him on lispro sliding scale. c. Obstructive sleep apnea. Place him on CPAP. d. Chronic obstructive pulmonary disease. The patient is a chronic smoker as well. We will place him on his home inhaler regimen or nicotine inhaler. 4. Hypertension as mentioned. His blood pressures are soft. I am holding all his agents this evening except for a lower dose of his metoprolol. 5. History of heart failure. No signs of heart failure at this time. We are holding his Lasix in the setting of sepsis. 6. Hyperlipidemia. Continue with simvastatin. 7. DVT prophylaxis. The patient scores high risk. He is on Xarelto. 8. FEN. We will place the patient on heart healthy diet with maintenance fluids. 9. Code status: Full code. PATIENT TIME: Greater than 60 minutes was spent doing the history and physical , more than half the time was spent in direct patient contact. [id number]/CPS #: [id number] TIMUR
[2018-01-28] MEDS: Mometasone/Formoter 200/5 MDI INH SCH ×3 (00:15→20:44)
[2018-01-28] MEDS: Acetaminophen TAB* 325 MG PO PRN (04:01)
[2018-01-28] MEDS: Albuterol HFA INHALER* 8 gm MDI INH PRN (04:23)
[2018-01-28 05:40] LABS: ABS Basophils 0 10^3/ul (0-0.2); ABS Eosinophils 0 10^3/ul (0-0.6); ABS Monocytes 0.8 10^3/ul (0-0.8); ABS Neutrophils 7.5 10^3/ul (1.5-7.7); ABS Nucleated RBC 0 10^3/ul; Eosinophil % 0.1 % (0-6); Hematocrit 41 % (42-52); Hemoglobin 14.2 g/dl (14.0-18.0); Lymphocyte % 10.3 % (25-47); Mean Corpuscular HGB Conc 35 g/dl (31-36); Mean Corpuscular Hemoglobin 35 pg (27-31); Mean Corpuscular Volume 100 fL (80-94); Mean Platelet Volume 8.1 um3 (7.4-10.4); Nucleated Red Blood Cells % 0; Platelet Count 135 10^3/ul (150-450); Red Cell Distribution Width 15 % (10.5-15); White Blood Count 9.2 10^3/ul (3.5-10.8)
[2018-01-28 06:06] LABS: EGFR Non-African American 67.6 (>60)
[2018-01-28] MEDS: Metoprolol Tartrate TAB* 25 MG PO SCH (08:59)
[2018-01-28] MEDS: Insulin LISPRO* 1 UNITS UNIT SUBCUT SCH ×3 (08:59→19:12)
--- NOTE | 2018-01-28 15:27 | CONS ---
CONSULTATION REPORT: DATE OF CONSULT: 01/28/18 REQUESTING PROVIDER: Bernadine Grimaldo NP CONSULTING SERVICE: Infectious Disease. REASON FOR CONSULTATION: Left ear cellulitis. IMPRESSION: 1. Cellulitis of the left external ear, adjacent face and back through the mastoid. He has mastoid tenderness, but the CT scan shows the left mastoid to be clear. I think it is just overlying inflammation causing the tenderness. There is no evidence of abscess either. I question this is secondary to microtrauma from his hearing aid creating a portal of entry. He is diabetic. The differential includes cholesteatoma, but I think it is less likely. There is not a great view of tympanic membrane, but so far no evidence of a perforation. 2. Diabetes. 3. Morbid obesity. 4. Atrial fibrillation. RECOMMENDATIONS: Clindamycin 300 mg by mouth 3 times a day for 10 days. Follow up with me next week. Have him followup with ear, nose, and throat doctor as an outpatient for further evaluation for tympanic membranes process or cholesteatoma. HISTORY OF PRESENT ILLNESS: This is a 72-year-old male with diabetes and obesity, admitted with dizziness that came on suddenly yesterday along with malaise and fevers and chills. He had a recent onset of left ear pain as well without changes in hearing. At baseline requires bilateral hearing aids. He did have a little bit of drainage from the left ear yesterday that stopped, he was dizzy yesterday that has also resolved. He thinks he was eating and drinking okay, but came to the hospital because of feeling off balance. That has since resolved. His temperature overnight was 39, he is afebrile this morning. He is eating and drinking and walking and doing laps around the unit without any trouble with his balance. His white count was [id number] yesterday, is 9000 today since being on ceftriaxone. Influenza PCR was negative. His lactic acid was 2. Blood culture was sent, no growth so far. PAST MEDICAL HISTORY: 1. Type 2 diabetes. 2. Obesity. 3. Status post frontal craniotomy for intracranial hemorrhage. 4. Atrial fibrillation, on anticoagulation. 5. Lung cancer, status post radiation, now in remission. 6. COPD. 7. Benign prostatic hypertrophy. 8. Hyperlipidemia. 9. History of heart failure. 10. Obstructive sleep apnea, uses CPAP. 11. Hypertension. 12. Neuropathy. MEDICATIONS: 1. Tylenol. 2. Albuterol. 3. Atorvastatin. 4. Docusate. 5. Gabapentin. 6. Lorazepam as needed. 7. Melatonin at bedtime. 8. Metoprolol. 9. Nicotine inhaler. 10. Rivaroxaban. 11. Potassium. 12. Ceftriaxone 1 g a day. 13. Senna. ALLERGIES: No known drug allergies. FAMILY HISTORY: He is unsure about his parents medical history. SOCIAL HISTORY: He lives in [place] by himself. No travel or sick contacts. No tuberculosis or recurrent infections. REVIEW OF SYSTEMS: A 14-point review of systems was all negative except as noted above. PHYSICAL EXAM: Vital Signs: Temperature is 36, heart rate is 95, respiratory rate 18, blood pressure 126/91, and oxygen saturation 95% on room air. In general, he is awake, not in distress. Neurologic: He is oriented x3, follows all commands. HEENT: There is no conjunctival hemorrhage. Oropharynx: Without lesions. Left Ear, at the external ear there is diffuse edema, erythema, and mild tenderness. There is no drainage. His auditory canal is obstructed by the edema. There is trace edema and tenderness anterior to the trigone and into the area over the left mastoid. There is no crepitus or fluctuance. Neck: Supple without mass. There is normal range of motion. Heart: Regular and tachycardic without murmurs. Lungs: Clear to auscultation bilaterally. Abdomen: Soft, nontender, and nondistended. There is bowel sounds present. Skin: There is no rash or splinter hemorrhages. Musculoskeletal: There is no spinous tenderness to palpation. DIAGNOSTIC STUDIES/LAB DATA: White blood cell count 9, hemoglobin 14, platelets 135, and creatinine is 1. C-reactive protein was 55 yesterday. Please see impressions and recommendations outlined above, which I have discussed with Bernadine Grimaldo NP. Thanks for asking me to see Mr. Baca in consultation. [id number]/[facility] #: [id number] MTDD
[2018-01-28] MEDS: Clindamycin 600 MG IVPREMIX(* 600 MG/50 ML SDV IV SCH (17:02)
[2018-01-28] MEDS ORDERED: cefTRIAXone(*) 1 GM in NS 0.9% 50 ML* 50 ML IVPB SCH (18:00)
[2018-01-28] MEDS ORDERED: Metoprolol Tartrate TAB* 100 MG TAB PO SCH (19:05)
[2018-01-28] MEDS ORDERED: Metoprolol Tartrate TAB* 100 MG TAB ONE (19:22)
--- NOTE | 2018-01-28 19:23 | PN ---
Subjective Date of Service: 01/28/18 Interval History: C/o left ear pain and redness. Denies chest pain or shortness of breath. Denies abd pain n/v/d. Family History: Unchanged from Admission Social History: Unchanged from Admission Past Medical History: Unchanged from Admission Objective Active Medications: Acetaminophen (Tylenol Tab*) 650 mg PO Q4H PRN PRN Reason: FEVER/PAIN Last Admin: 01/28/18 04:01 Dose: 650 mg Al Hydrox/Mg Hydrox/Simethicone (Maalox Plus*) 30 ml PO Q6H PRN PRN Reason: INDIGESTION Albuterol (Ventolin Hfa Inhaler*) 2 puff INH Q4H PRN PRN Reason: SOB/WHEEZING Last Admin: 01/28/18 04:23 Dose: 2 puff Atorvastatin Calcium (Lipitor*) 10 mg PO BEDTIME [facility] Last Admin: 01/27/18 21:33 Dose: 10 mg Device (Nicotine Mouth Piece*) 1 each INH .USE WITH NICOTROL PRN PRN Reason: CRAVING Dextrose (D50w Syringe 50 Ml*) 12.5 gm IV PUSH .FOR FS < 60 - SS PRN PRN Reason: FS < 60 Docusate Sodium (Colace Cap*) 100 mg PO BID PRN PRN Reason: CONSTIPATION Gabapentin (Neurontin Cap(*)) 100 mg PO BEDTIME [facility] Last Admin: 01/27/18 21:33 Dose: 100 mg Gabapentin (Neurontin Cap(*)) 100 mg PO BID PRN PRN Reason: NEUROPATHY Lactated Ringer's (Lactated Ringers 1000 Ml Bag*) 1,000 mls @ 50 mls/hr IV PER RATE [facility] Last Admin: 01/28/18 08:59 Dose: 50 mls/hr Clindamycin HCl/Dextrose (Cleocin 600 Mg Ivpremix(*) Sdv) 600 mg in 50 mls @ 100 mls/hr IV Q8H [facility] Last Admin: 01/28/18 17:02 Dose: 100 mls/hr Insulin Human Lispro (Humalog*) 0 units SUBCUT AC [facility] PRN Reason: Protocol Last Admin: 01/28/18 19:12 Dose: 3 units Lorazepam (Ativan Tab(*)) 0.25 mg PO Q6H PRN PRN Reason: ANXIETY Melatonin (Melatonin (Nf)) 3 mg PO BEDTIME [facility] Last Admin: 01/27/18 21:33 Dose: 3 mg Metoprolol Tartrate (Lopressor Tab*) 100 mg PO BID [facility] Mometasone Furoate/Formoterol Fumar (Dulera 200/5 Mdi*) 2 puff INH BID [facility] Last Admin: 01/28/18 08:19 Dose: 2 puff Nicotine (Nicotine Inhaler*) 10 mg INH Q2H PRN PRN Reason: CRAVING Ondansetron HCl (Zofran Inj*) 4 mg IV Q4H PRN PRN Reason: NAUSEA/VOMITING Rivaroxaban (Xarelto(*)) 20 mg PO DAILY@1700 [facility] Senna (Senokot Tab*) 1 tab PO BID PRN PRN Reason: CONSTIPATION Vital Signs - 8 hr 01/28/18 01/28/18 12:16 15:26 Temperature 98.1 F Pulse Rate 100 69 Respiratory 18 22 Rate Blood Pressure 130/76 (mmHg) O2 Sat by Pulse 95 95 Oximetry Oxygen Devices in Use Now: None Appearance: appears comfortable sitting in the bed Eyes: No Scleral Icterus Ears/Nose/Mouth/Throat: Clear Oropharnyx, Mucous Membranes Moist Neck: NL Appearance and Movements; NL JVP, Trachea Midline Respiratory: Symmetrical Chest Expansion and Respiratory Effort, Clear to Auscultation Cardiovascular: NL Sounds; No Murmurs; No JVD Abdominal: NL Sounds; No Tenderness; No Distention Extremities: No Clubbing, Cyanosis Skin: - - left ear and neck with erythema and swelling, warm to touch Neurological: Alert and Oriented x 3, NL Gait Nutrition: Taking PO's Result Diagrams: 01/28/18 05:19 01/29/18 04:52 Additional Lab and Data: Lab Results 01/27/18 01/27/18 01/27/18 Range/Units 18:00 18:00 18:00 WBC (3.5-10.8) 10^3/ul RBC (4.0-5.4) 10^6/ul Hgb (14.0-18.0) g/dl Hct (42-52) % MCV (80-94) fL MCH (27-31) pg MCHC (31-36) g/dl RDW (10.5-15) % Plt Count (150-450) 10^3/ul MPV (7.4-10.4) um3 Neut % (Auto) (38-83) % Lymph % (Auto) (25-47) % Citrus % (Auto) (0-7) % Eos % (Auto) (0-6) % Baso % (Auto) (0-2) % Absolute Neuts (auto) (1.5-7.7) 10^3/ul Absolute Lymphs (auto) (1.0-4.8) 10^3/ul Absolute Monos (auto) (0-0.8) 10^3/ul Absolute Eos (auto) (0-0.6) 10^3/ul Absolute Basos (auto) (0-0.2) 10^3/ul Absolute Nucleated RBC 10^3/ul Nucleated RBC % INR (Anticoag Therapy) 1.50 H (0.77-1.02) APTT 40.1 H (26.0-36.3) seconds D-Dimer, Quantitative < 200 (Less Than 230) ng/mL Carbon Monoxide Screen (<4.0) % Sodium 137 L (139-145) mmol/L Potassium 3.5 (3.5-5.0) mmol/L Chloride 99 L (101-111) mmol/L Carbon Dioxide 28 (22-32) mmol/L Anion Gap 10 (2-11) mmol/L BUN 16 (6-24) mg/dL Creatinine 1.27 H (0.67-1.17) mg/dL Est GFR ( Amer) 72.1 (>60) Est GFR (Non-Af Amer) 56.1 (>60) BUN/Creatinine Ratio 12.6 (8-20) Glucose 132 H (70-100) mg/dL Lactic Acid (0.5-2.0) mmol/L Calcium 9.1 (8.6-10.3) mg/dL Magnesium 1.5 L (1.9-2.7) mg/dL Total Bilirubin 1.60 H (0.2-1.0) mg/dL AST 15 (13-39) U/L ALT 15 (7-52) U/L Alkaline Phosphatase 58 (34-104) U/L Ammonia 37 (16-53) mcmol/L Total Creatine Kinase 209 (10-223) U/L CK-MB (CK-2) 5.4 (0.6-6.3) ng/mL Troponin I 0.03 (<0.04) ng/mL C-Reactive Protein 55.04 H (< 5.00) mg/L B-Natriuretic Peptide 383 H ( - 100) pg/mL Total Protein 6.4 (6.4-8.9) g/dL Albumin 4.0 (3.2-5.2) g/dL Globulin 2.4 (2-4) g/dL Albumin/Globulin Ratio 1.7 (1-3) Lipase 34 (11.0-82.0) U/L TSH Pending Acetaminophen < 15 mcg/mL 01/27/18 01/27/18 01/27/18 Range/Units 18:00 18:00 18:20 WBC 15.7 H (3.5-10.8) 10^3/ul RBC 4.54 (4.0-5.4) 10^6/ul Hgb 15.4 (14.0-18.0) g/dl Hct 45 (42-52) % MCV 99 H (80-94) fL MCH 34 H (27-31) pg MCHC 35 (31-36) g/dl RDW 15 (10.5-15) % Plt Count 159 (150-450) 10^3/ul MPV 8.0 (7.4-10.4) um3 Neut % (Auto) 86.4 H (38-83) % Lymph % (Auto) 6.7 L (25-47) % Citrus % (Auto) 6.3 (0-7) % Eos % (Auto) 0 (0-6) % Baso % (Auto) 0.6 (0-2) % Absolute Neuts (auto) 13.5 H (1.5-7.7) 10^3/ul Absolute Lymphs (auto) 1.1 (1.0-4.8) 10^3/ul Absolute Monos (auto) 1.0 H (0-0.8) 10^3/ul Absolute Eos (auto) 0 (0-0.6) 10^3/ul Absolute Basos (auto) 0.1 (0-0.2) 10^3/ul Absolute Nucleated RBC 0 10^3/ul Nucleated RBC % 0.1 INR (Anticoag Therapy) (0.77-1.02) APTT (26.0-36.3) seconds D-Dimer, Quantitative (Less Than 230) ng/mL Carbon Monoxide Screen 4.0 (<4.0) % Sodium (139-145) mmol/L Potassium (3.5-5.0) mmol/L Chloride (101-111) mmol/L Carbon Dioxide (22-32) mmol/L Anion Gap (2-11) mmol/L BUN (6-24) mg/dL Creatinine (0.67-1.17) mg/dL Est GFR ( Amer) (>60) Est GFR (Non-Af Amer) (>60) BUN/Creatinine Ratio (8-20) Glucose (70-100) mg/dL Lactic Acid 2.1 H* (0.5-2.0) mmol/L Calcium (8.6-10.3) mg/dL Magnesium (1.9-2.7) mg/dL Total Bilirubin (0.2-1.0) mg/dL AST (13-39) U/L ALT (7-52) U/L Alkaline Phosphatase (34-104) U/L Ammonia (16-53) mcmol/L Total Creatine Kinase (10-223) U/L CK-MB (CK-2) (0.6-6.3) ng/mL Troponin I (<0.04) ng/mL C-Reactive Protein (< 5.00) mg/L B-Natriuretic Peptide ( - 100) pg/mL Total Protein (6.4-8.9) g/dL Albumin (3.2-5.2) g/dL Globulin (2-4) g/dL Albumin/Globulin Ratio (1-3) Lipase (11.0-82.0) U/L TSH Acetaminophen mcg/mL Microbiology and Other Data: Microbiology 01/27/18 20:12 Urine Culture - Final Urine 01/27/18 21:16 Influenza Types A,B Antigen (KENZIE) - Final Nasal Specimen received for Influenza A/B Molecular testing Assess/Plan/Problems-Billing Assessment: Mr. Baca is a 72 y.o female with a history of - Patient Problems (1) Sepsis affecting skin Status: Acute Code(s): A41.9 - SEPSIS, UNSPECIFIED ORGANISM SNOMED Code(s): 967639504 Comment: resolved Patient was hypotensive and febrile on admission with elevated WBC's (2) Cellulitis Status: Acute Code(s): L03.90 - CELLULITIS, UNSPECIFIED SNOMED Code(s): 151004756 Comment: - left ear cellulitis - consult to Dr. Diana - recommendations appreciated - will start clindamycin as per recommendations - may consider CT of head in neck in AM if increased pain or swelling. (3) Atrial fibrillation Status: Acute Code(s): I48.91 - UNSPECIFIED ATRIAL FIBRILLATION SNOMED Code( s): 52912000 Comment: Continue metoprolol and Xarelto. (4) Morbid obesity Status: Acute Code(s): E66.01 - MORBID (SEVERE) OBESITY DUE TO EXCESS CALORIES SNOMED Code(s): 149743337 Comment: BMI 46.6. (5) DVT prophylaxis Status: Acute Code(s): IXD8344 - SNOMED Code(s): 378062360 Comment: Continue Xarelto (6) Diabetes Status: Chronic Code(s): E11.9 - TYPE 2 DIABETES MELLITUS WITHOUT COMPLICATIONS SNOMED Code(s): 15332624 Comment: Resume home dose metformin. (7) HTN (hypertension) Status: Chronic Code(s): I10 - ESSENTIAL (PRIMARY) HYPERTENSION SNOMED Code( s): 77071501 Comment: Resume amlodipine, continue losartan, metoprolol.
[2018-01-28] MEDS ORDERED: Potassium Chlor TAB* 20 MEQ TAB.ER PO ONE (19:41)
[2018-01-28] MEDS ORDERED: Rivaroxaban TAB(*) 20 MG TAB PO SCH (20:00)
[2018-01-28] MEDS: Metoprolol Tartrate TAB* 100 MG TAB PO SCH (20:04)
[2018-01-28] MEDS ORDERED: Metoprolol Tartrate TAB* 50 mg PO SCH (21:00)
[2018-01-28] MEDS: Atorvastatin* 10 MG TAB PO SCH (21:17)
[2018-01-28] MEDS: LORazepam TAB(*) 0.5 MG PO PRN (21:17)
[2018-01-28] MEDS: Gabapentin CAP(*) 100 MG PO SCH (21:18)
[2018-01-28] MEDS: CMCS:Melatonin (NF) 3 MG TAB PO SCH (21:20)
[2018-01-29] MEDS: Clindamycin 600 MG IVPREMIX(* 600 MG/50 ML SDV IV SCH ×2 (00:02→08:53)
[2018-01-29] MEDS: Albuterol HFA INHALER* 8 gm MDI INH PRN (03:03)
[2018-01-29] MEDS: LORazepam TAB(*) 0.5 MG PO PRN (03:08)
[2018-01-29 05:18] LABS: EGFR Non-African American 72.2 (>60)
[2018-01-29] MEDS: Mometasone/Formoter 200/5 MDI INH SCH (07:59)
[2018-01-29 08:51] VITALS: BP 131/93
[2018-01-29] MEDS: Metoprolol Tartrate TAB* 100 MG TAB PO SCH (08:51)
[2018-01-29] MEDS: Insulin LISPRO* 1 UNITS UNIT SUBCUT SCH (08:52)
--- NOTE | 2018-01-29 08:56 | PN ---
Progress Note - Progress Note Date of Service: 01/29/18 SOAP: Subjective: CC: left face cellulitis HPI: 72 year old man with diabetes and left face, external ear cellulitis; had dizziness which is resolved. No ear drainage. Objective: Vital Signs Temp 37.3 C 01/29/18 07:21 Pulse 108 01/29/18 07:21 Resp 20 01/29/18 07:21 BP 131/93 01/29/18 07:21 Pulse Ox 94 01/29/18 07:21 Intake & Output 01/28/18 01/29/18 01/29/18 18:59 06:59 18:59 Intake Total 4810 751 Output Total 375 525 100 Balance 4435 226 -100 Intake: IV Fluids 2940 524 ABX - CLINDAMYCIN 524 LR 2940 IVPB 50 107 ABX - CLINDAMYCIN 50 107 Oral 1820 120 Output: Urine 375 525 100 Other: Estimated Void Small # Bowel Movements 0 # Voids 1 1 1 General: awake, no distress HEENT:PERRL, MMM, left external ear/face, mastoid erythema and edema, no crepitus, mild tenderness Heart:RRR no murmur Lungs:CTA BL Abd:+BS NTND soft Skin: no rash MSK: no spine tenderness Laboratory Results - last 24 hr 01/28/18 01/28/18 01/29/18 11:45 17:08 04:52 Sodium 137 L Potassium 3.8 Chloride 101 Carbon Dioxide 29 Anion Gap 7 BUN 11 Creatinine 1.02 Est GFR ( Amer) 92.9 Est GFR (Non-Af Amer) 72.2 BUN/Creatinine Ratio 10.8 Glucose 142 H POC Glucose (mg/dL) 81 141 H Lactic Acid Calcium 8.9 Magnesium 1.8 L 01/29/18 01/29/18 04:52 07:28 Sodium Potassium Chloride Carbon Dioxide Anion Gap BUN Creatinine Est GFR ( Amer) Est GFR (Non-Af Amer) BUN/Creatinine Ratio Glucose POC Glucose (mg/dL) 184 H Lactic Acid 1.4 Calcium Magnesium Microbiology 01/27/18 20:10 Aerobic Blood Culture - Preliminary Blood Venous No Growth Day 1 Anaerobic Blood Culture - Preliminary No Growth Day 1 01/27/18 20:10 Aerobic Blood Culture - Preliminary Blood Venous No Growth Day 1 Anaerobic Blood Culture - Preliminary No Growth Day 1 01/27/18 20:12 Urine Culture - Final Urine Assessment: 1. Left ear, face cellulitis, improved, likely strep 2. morbid obesity 3. diabetes, T2 4. atrial fibrillation Plan: 1. clindamycin 300 mg po tid day 11/23, fu with me next week, if not totally resolved with obtain ENT evaluation Discussed with Bernadine Grimaldo [employer]
--- NOTE | 2018-02-01 01:32 | DS ---
DISCHARGE SUMMARY: DATE OF ADMISSION: 01/27/18 DATE OF DISCHARGE: 01/29/18 ATTENDING PHYSICIAN: Hernan Priest MD (dictated by Robert Grimaldo NP). PRIMARY CARE PROVIDER: Dr. Dykes. PRIMARY DIAGNOSIS: Left ear cellulitis. SECONDARY DIAGNOSES: 1. History of lung cancer in remission. 2. Atrial fibrillation, on anticoagulation. 3. Chronic obstructive pulmonary disease on room air. 4. Benign prostatic hypertrophy. 5. Hyperlipidemia. 6. Diabetes. 7. Congestive heart failure, unspecified. 8. Hard of hearing, wears bilateral hearing aids. 9. Obstructive sleep apnea, on CPAP. 10. Hypertension. 11. Neuropathy. STUDIES COMPLETED WHILE IN THE HOSPITAL: The patient had a CT of the brain on 01/27/18, radiologist' s impression: 1. No evidence of acute intracranial abnormality. 2. 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 3. Opacification of the frontal sinus, unchanged from prior study. 4. Old fracture of the medial wall of the left orbit, unchanged. He had a chest x-ray on 01/27/18, radiologist's impression: No evidence of acute findings. He had a n electrocardiogram on 01/27/18, atrial fibrillation. DISCHARGE MEDICATIONS: Clindamycin 300 mg p.o. t.i.d. x8 days. Continued home medications: 1. Acetaminophen 650 mg p.o. q.4 hours as needed for pain. 2. Norvasc 10 mg p.o. daily. 3. Lasix 80 mg p.o. daily. 4. Gabapentin 100 to 300 mg p.o. t.i.d. 5. Lorazepam 0.25 mg as needed for anxiety. 6. Losartan 100 mg p.o. daily. 7. Metformin 1000 mg p.o. b.i.d. 8. Metoprolol 150 mg p.o. q.a.m. and 100 mg p.o. q.p.m. 9. Xarelto 20 mg p.o. daily. 10. Simvastatin 20 mg at bedtime. 11. Spironolactone 25 mg p.o. daily. HISTORY OF PRESENT ILLNESS AND HOSPITAL COURSE: Mr. Paz is a 72-year-old male with a past medical history of AFib on anticoagulation, COPD, who presents to the emergency room after not feeling well last night. He states every time he stood up he felt disoriented and lightheaded. Denies feeling li ke he was going to pass out or dizzy. States that he has been sleeping more and denies any change in his respiratory symptoms. States that he always has a cough and is always short of breath especiall y with exertion. Denies any chest pain. Denies any nausea or chronic diarrhea. In the emergency ro om, the patient had imaging and labs. He was given DuoNeb, azithromycin, ceftriaxone, and was referr ed to the hospitalist service for further evaluation. During his hospitalization, the patient did qualify for sepsis and it was suspected the sepsis was re lated to the left ear cellulitis. His respiratory findings were unchanged. He had a negative chest x-ray. He did spike a 102 fever in the emergency room and was tachycardic and hypotensive. We did f ollow his blood cultures throughout his hospitalization, they remained no growth. The patient was pl aced on clindamycin 600 mg q.8 hours during his hospitalization. He tolerated the clindamycin well. His initial WBCs on 01/27/18 were 15.7. On 01/28/18, his white count was down to 9.2. His magnesiu m was low at 1.8. He did receive 2 g of IV magnesium for replacement during his hospitalization. Hi s potassium was also low at 3.3. He received potassium chloride 40 mEq x2 during this hospitalizatio n. For the sepsis during this hospitalization, he did receive 2000 mL of normal saline and then had n ormal saline at 150 cc an hour. His lactic acid on 01/27/18 was 2.1, repeat lactic acid on 01/29/18 was 1.4. His initial potassium was 3.3 and repeat potassium was 3.8. On 01/29/18, Mr. Paz report s that he is feeling better, he has been afebrile since 01/28/18. At this time, Mr. Paz is stable for discharge home. Mr. Paz will be discharged home today. Vital signs are as follows: Temp was 99.1, heart rate was 108, respirations were 20, O2 saturation was 94%, blood pressure 131/93. DISCHARGE PLAN: Mr. Paz will be discharged back home. Activity as tolerated. He should continue on a low-sodium, heart healthy diet. 1. In regards to his cellulitis, he should continue on clindamycin 300 mg p.o. 3 times a day for 8 m ore days. He should follow up with Dr. Mcallister in 7 days for followup. He should also follow up wi th his primary care provider in 4 to 7 days for evaluation of his left ear cellulitis. 2. In regards to his atrial fibrillation, he should continue on Xarelto and metoprolol. 3. As far as his diabetes, he should continue on his metformin at home. 4. Obstructive sleep apnea. He should wear his CPAP at night while he is at home. 5. Chronic obstructive pulmonary disease. He should continue his home inhalers. 6. Hypertension. He should resume all of his blood pressure medicines as previously prescribed at [facility]. 7. Congestive heart failure. He should resume his Lasix. 8. Hyperlipidemia. He should continue his simvastatin. FOLLOWUP: He should follow up with Dr. Mcallister in 1 week. He should follow up with his primary car e provider in 4 to 7 days. The patient was instructed to return to the emergency room for any increased redness, pain, inability to swallow, severe head pain, fevers, chills, chest pain, or shortness of breath. The patient verba lized understanding. This is a summarization of his hospitalization. For further details, please see the entire medical r ecord. TIME SPENT: Time spent on this discharge was approximately 60 minutes; greater than half that time w as spent with the patient discussing discharge plans and instructions. CONDITION ON DISCHARGE: Stable. This plan was discussed with my attending, Dr. Hernan Priest and he is in agreement with my plan. ROBERT GRIMALDO, BARREL LINE OPERATOR [id number]/[facility] #: [id number]
== END 2018-01-29 10:11 | disposition home or self-care (01) | DRG 872 ==
LOC: ED 15:25 → MEDTELE 19:55
PROVIDERS: ADMIT Pediatrics; ATTEND Internal Medicine
PROC: 5A09357 Assistance with Respiratory Ventilation, Less than 24 Consecutive Hours, Continuous Positive Airway Pressure (ICD-10-PCS; principal; 2018-01-27)
DX: A41.9 Sepsis, unspecified organism (principal); L03.211 Cellulitis of face; Z68.42 Body mass index [BMI] 45.0-49.9, adult; N17.9 Acute kidney failure, unspecified; B95.5 Unspecified streptococcus as the cause of diseases classified elsewhere; E11.40 Type 2 diabetes mellitus with diabetic neuropathy, unspecified; H60.12 Cellulitis of left external ear; E66.01 Morbid (severe) obesity due to excess calories; I48.91 Unspecified atrial fibrillation; J44.9 Chronic obstructive pulmonary disease, unspecified; N40.0 Benign prostatic hyperplasia without lower urinary tract symptoms; I11.0 Hypertensive heart disease with heart failure; I50.9 Heart failure, unspecified; E78.5 Hyperlipidemia, unspecified; G47.33 Obstructive sleep apnea (adult) (pediatric); R41.82 Altered mental status, unspecified; F17.210 Nicotine dependence, cigarettes, uncomplicated; K52.9 Noninfective gastroenteritis and colitis, unspecified; Z92.3 Personal history of irradiation; Z85.118 Personal history of other malignant neoplasm of bronchus and lung; Z79.01 Long term (current) use of anticoagulants; Z79.84 Long term (current) use of oral hypoglycemic drugs; Z79.899 Other long term (current) drug therapy
CPT/HCPCS: 36415; 70450; 71045; 80048; 80053; 80307; 80329; 81003; 81015; 82140; 82375; 82550; 82553; 83036; 83605; 83690; 83735; 83880; 84443; 84484; 85025; 85379; 85610; 85730; 86140; 87040; 87086; 87502; 93005; 94640; 94660; 99285; A9270-GY; G0480; J0456; J0696; J3475

== ENCOUNTER 2022-10-21 12:46 | Inpatient (IN) ==
[2022-10-21] MEDS ORDERED: Morphine 4 MG/ML VIAL (1 ml) IV ONE ×2 (14:00→16:35)
[2022-10-21] MEDS ORDERED: Ondansetron 4 mg VIAL 2 MG/ML 2 ml VIAL IV ONE (14:00)
[2022-10-21] MEDS ORDERED: Acetaminophen IV 1 GM/100ML 1,000 MG/100 ML BAG IV ONE (14:01)
[2022-10-21] MEDS ORDERED: HYDROmorphone 1 MG/1 ML SYRINGE IV SLOW PU ONE ×2 (16:00→16:50)
[2022-10-21 16:33] LABS: ABS Basophils 0.1 10^3/ul (0-0.2); ABS Lymphocytes 1.1 10^3/ul (1.0-4.8); ABS Monocytes 0.5 10^3/ul (0-0.8); ABS Neutrophils 9.2 10^3/ul (1.5-7.7); Eosinophil % 0.3 %; Hematocrit 43 % (42-52); Hemoglobin 14.3 g/dL (14.0-18.0); Lymphocyte % 9.7 %; Mean Corpuscular HGB Conc 33 g/dL (31-36); Mean Corpuscular Hemoglobin 32 pg (27-31); Mean Corpuscular Volume 97 fL (80-94); Mean Platelet Volume 8.4 fL (7.4-10.4); Platelet Count 231 10^3/uL (150-450); Red Blood Count 4.42 10^6 /uL (4.18-5.48); Red Cell Distribution Width 15 % (10-15); White Blood Count 10.9 10^3/uL (3.5-10.8)
[2022-10-21] MEDS ORDERED: NS 0.9% 1000 ml BAG 1,000 ML IV ONE (16:35)
[2022-10-21 17:14] LABS: Calcium 7.9 mg/dL (8.6-10.3); Potassium 4.5 mmol/L (3.5-5.0); eGFR CKD-EPI 24.9 (>60)
[2022-10-21] MEDS ORDERED: Dextrose 50% Syringe 50 ml 25 GM/50 ML SYRINGE IV PUSH PRN (20:33)
[2022-10-21 20:43] LABS: C Reactive Protein 2.14 mg/L (<8.01); Magnesium 1.7 mg/dL (1.9-2.7)
[2022-10-21 21:10] LABS: Osmolality Serum 292 mOsm/kg (275-295)
[2022-10-21] MEDS ORDERED: Magnesium Sulfate IV 3 GM in NS 0.9% 100 ml BAG 100 ML IVPB ONE (21:33)
[2022-10-21 21:37] LABS: Folate 6.89 ng/mL (5.90-24.80)
[2022-10-21 21:45] LABS: TSH Ultra Thyroid Stim Horm 2.48 mcIU/mL (0.34-5.60)
[2022-10-21] MEDS ORDERED: Albuterol HFA INHALER 8 gm MDI INH PRN (22:30)
[2022-10-21] MEDS: Acetaminophen IV 1 GM/100ML 1,000 MG/100 ML BAG IV SCH (23:58)
[2022-10-22] MEDS ORDERED: NS 0.9% 1000 ml BAG 1,000 ML IV SCH (04:30)
[2022-10-22] MEDS: Acetaminophen IV 1 GM/100ML 1,000 MG/100 ML BAG IV SCH ×4 (06:14→23:57)
[2022-10-22 06:22] LABS: ABS Eosinophils 0.2 10^3/ul (0-0.6); ABS Lymphocytes 1.6 10^3/ul (1.0-4.8); ABS Monocytes 0.8 10^3/ul (0-0.8); ABS Neutrophils 6.4 10^3/ul (1.5-7.7); Eosinophil % 1.7 %; Hematocrit 37 % (42-52); Hemoglobin 12.4 g/dL (14.0-18.0); Lymphocyte % 18.2 %; Mean Corpuscular HGB Conc 33 g/dL (31-36); Mean Corpuscular Hemoglobin 32 pg (27-31); Mean Corpuscular Volume 98 fL (80-94); Platelet Count 197 10^3/uL (150-450); Red Blood Count 3.83 10^6 /uL (4.18-5.48); Red Cell Distribution Width 15 % (10-15)
[2022-10-22 07:06] LABS: Calcium 8.2 mg/dL (8.6-10.3); Magnesium 2.6 mg/dL (1.9-2.7); Potassium 4.1 mmol/L (3.5-5.0); eGFR CKD-EPI 17.4 (>60)
[2022-10-22 09:34] LABS: Calcium 8.2 mg/dL (8.6-10.3); Potassium 4.3 mmol/L (3.5-5.0); eGFR CKD-EPI 17.1 (>60)
[2022-10-22] MEDS: DULoxetine DR 20 mg CAP PO SCH (10:21)
[2022-10-22] MEDS: Mirabegron 25 mg ER TAB (NF) PO SCH (10:23)
[2022-10-22] MEDS ORDERED: Desmopressin Acetate 2 MCG in NS 0.9% 50 ML 50 ML IVPB ONE (10:25)
[2022-10-22 10:57] LABS: Urine Appearance Cloudy; Urine Bilirubin Negative (Negative); Urine Blood Negative (Negative); Urine Color Yellow; Urine Glucose Negative (Negative); Urine Ketones Negative (Negative); Urine Nitrite Negative (Negative); Urine Protein Negative (Negative); Urine Specific Gravity 1.015 (1.002-1.030); Urine Urobilinogen Negative (Negative)
[2022-10-22] MEDS ORDERED: D5W 250 ml BAG 250 ML IV SCH ×2 (11:00→13:00)
[2022-10-22 11:32] LABS: Urine Osmo 329 mOsm/kg (150-1150)
[2022-10-22 12:38] LABS: Calcium 8.6 mg/dL (8.6-10.3); Potassium 4.8 mmol/L (3.5-5.0); eGFR CKD-EPI 17.9 (>60)
[2022-10-22 17:38] LABS: Calcium 8.2 mg/dL (8.6-10.3); Potassium 4.5 mmol/L (3.5-5.0); eGFR CKD-EPI 17.6 (>60)
[2022-10-22 21:48] LABS: Calcium 8.1 mg/dL (8.6-10.3); Potassium 4.3 mmol/L (3.5-5.0)
[2022-10-23] MEDS: Acetaminophen IV 1 GM/100ML 1,000 MG/100 ML BAG IV SCH ×4 (00:22→18:43)
[2022-10-23 07:36] LABS: ABS Basophils 0.1 10^3/ul (0-0.2); ABS Eosinophils 0.3 10^3/ul (0-0.6); ABS Lymphocytes 1.4 10^3/ul (1.0-4.8); ABS Monocytes 0.7 10^3/ul (0-0.8); ABS Neutrophils 4.9 10^3/ul (1.5-7.7); Hematocrit 33 % (42-52); Lymphocyte % 18.9 %; Mean Corpuscular HGB Conc 34 g/dL (31-36); Mean Corpuscular Hemoglobin 33 pg (27-31); Mean Corpuscular Volume 97 fL (80-94); Mean Platelet Volume 7.4 fL (7.4-10.4); Platelet Count 183 10^3/uL (150-450); Red Blood Count 3.39 10^6 /uL (4.18-5.48); Red Cell Distribution Width 16 % (10-15); White Blood Count 7.4 10^3/uL (3.5-10.8)
[2022-10-23 08:23] LABS: Magnesium 2.4 mg/dL (1.9-2.7); eGFR CKD-EPI 19.7 (>60)
[2022-10-23] MEDS: DULoxetine DR 20 mg CAP PO SCH (08:59)
[2022-10-23] MEDS: Mirabegron 25 mg ER TAB (NF) PO SCH (09:04)
[2022-10-23] MEDS: guaiFENesin 100 mg/5 ml LIQ unit dose cup PO SCH ×2 (15:48→21:41)
[2022-10-23 15:55] LABS: Calcium 8.1 mg/dL (8.6-10.3); Potassium 4.2 mmol/L (3.5-5.0)
[2022-10-24] MEDS: Acetaminophen IV 1 GM/100ML 1,000 MG/100 ML BAG IV SCH ×4 (00:40→17:35)
[2022-10-24 07:45] LABS: ABS Basophils 0.1 10^3/ul (0-0.2); ABS Eosinophils 0.2 10^3/ul (0-0.6); ABS Monocytes 0.7 10^3/ul (0-0.8); ABS Neutrophils 4.6 10^3/ul (1.5-7.7); Eosinophil % 3.5 %; Hematocrit 30 % (42-52); Hemoglobin 10.3 g/dL (14.0-18.0); Lymphocyte % 15.3 %; Mean Corpuscular HGB Conc 35 g/dL (31-36); Mean Corpuscular Hemoglobin 33 pg (27-31); Mean Corpuscular Volume 95 fL (80-94); Mean Platelet Volume 7.5 fL (7.4-10.4); Platelet Count 179 10^3/uL (150-450); Red Blood Count 3.12 10^6 /uL (4.18-5.48); Red Cell Distribution Width 15 % (10-15); White Blood Count 6.6 10^3/uL (3.5-10.8)
[2022-10-24] MEDS: guaiFENesin 100 mg/5 ml LIQ unit dose cup PO SCH ×3 (08:05→23:00)
[2022-10-24] MEDS: DULoxetine DR 20 mg CAP PO SCH (08:07)
[2022-10-24 08:19] LABS: Calcium 7.9 mg/dL (8.6-10.3); Potassium 4.1 mmol/L (3.5-5.0); eGFR CKD-EPI 24.5 (>60)
[2022-10-24] MEDS: Mirabegron 25 mg ER TAB (NF) PO SCH (08:44)
[2022-10-24] MEDS ORDERED: Senna TAB 8.6 mg TAB PO PRN (13:51)
[2022-10-24] MEDS ORDERED: Cyanocobalamin INJ 1,000 MCG/ML VIAL 1 ML VIAL IM ONE (16:58)
[2022-10-24] MEDS: Polyethylene Glycol 3350 17 GM PACKET PO SCH (22:59)
[2022-10-25] MEDS: Acetaminophen IV 1 GM/100ML 1,000 MG/100 ML BAG IV SCH ×3 (01:01→11:51)
[2022-10-25 07:09] LABS: ABS Basophils 0.1 10^3/ul (0-0.2); ABS Eosinophils 0.2 10^3/ul (0-0.6); ABS Monocytes 0.6 10^3/ul (0-0.8); ABS Neutrophils 4.3 10^3/ul (1.5-7.7); Eosinophil % 3.7 %; Hematocrit 33 % (42-52); Hemoglobin 11.6 g/dL (14.0-18.0); Lymphocyte % 15.7 %; Mean Corpuscular HGB Conc 35 g/dL (31-36); Mean Corpuscular Hemoglobin 34 pg (27-31); Mean Corpuscular Volume 98 fL (80-94); Mean Platelet Volume 7.8 fL (7.4-10.4); Nucleated Red Blood Cells % 0.1; Platelet Count 222 10^3/uL (150-450); Red Blood Count 3.42 10^6 /uL (4.18-5.48); Red Cell Distribution Width 15 % (10-15); White Blood Count 6.2 10^3/uL (3.5-10.8)
[2022-10-25 07:53] LABS: Calcium 8.7 mg/dL (8.6-10.3); Potassium 4.4 mmol/L (3.5-5.0); eGFR CKD-EPI 28.8 (>60)
[2022-10-25] MEDS ORDERED: Metoprolol Succinate XL 200 mg TAB PO SCH (09:00)
[2022-10-25] MEDS: DULoxetine DR 20 mg CAP PO SCH (11:48)
[2022-10-25] MEDS: Polyethylene Glycol 3350 17 GM PACKET PO SCH (11:50)
[2022-10-25] MEDS: Mirabegron 25 mg ER TAB (NF) PO SCH (11:51)
[2022-10-25] MEDS ORDERED: Influenza vaccine *QUAD* *2022-23* 0.5 ML SYRINGE IM ONE (12:00)
[2022-10-25] MEDS: guaiFENesin 100 mg/5 ml LIQ unit dose cup PO SCH (12:06)
[2022-10-25 12:30] VITALS: BP 111/55
== END 2022-10-25 16:10 | disposition home health service (06) | DRG 641 ==
LOC: EDHOLD 12:46 → ED 12:46 → SUATTDRO 18:52 → EDHOLD 10-22 08:49 → MEDTELE 10-22 09:16 → SUATTDRO 10-22 10:46
PROVIDERS: ADMIT Internal Medicine; ATTEND Internal Medicine

== ENCOUNTER 2024-02-22 02:59 | Observation (INO) ==
[2024-02-22 03:21] LABS: ABS Basophils 0.1 10^3/uL (0.0-0.1); ABS Eosinophils 0.2 10^3/uL (0.0-0.5); ABS Lymphocytes 1.1 10^3/uL (1.0-4.8); ABS Monocytes 0.7 10^3/uL (0.0-1.1); ABS Neutrophils 4.9 10^3/uL (1.5-7.6); ABS Nucleated RBC 0.01 10^3/ul; Eosinophil % 2.7 %; Hematocrit 42.5 % (38-53); Hemoglobin 14.7 g/dL (13.2-16.3); Lymphocyte % 15.6 %; Mean Corpuscular Hemoglobin 33.7 pg (27-33); Mean Corpuscular Hgb Conc 34.6 g/dL (31-36); Mean Corpuscular Volume 97.4 fL (80-97); Mean Platelet Volume 7.4 fL (7.5-11.2); Nucleated Red Blood Cells % 0.1 %/100WBC (0.0-0.8); Platelet Count 193 10^3/uL (150-450); Red Blood Count 4.36 10^6/uL (4.06-5.63); Red Cell Distribution Width 14.7 % (12-17); White Blood Count 6.9 10^3/uL (3.6-10.2)
[2024-02-22 03:30] LABS: INR 1.3 (0.83-1.13)
[2024-02-22 03:57] LABS: Albumin 3.9 g/dL (3.2-5.2); Albumin/Globulin Ratio 1.8 (1-3); Calcium 9.5 mg/dL (8.6-10.3); Creatinine, Serum 2.61 mg/dL (0.67-1.17); Globulin 2.2 g/dL (2-4); Potassium 4.1 mmol/L (3.5-5.0); Total Bilirubin 0.7 mg/dL (0.2-1.0); Total Protein 6.1 g/dL (6.4-8.9); eGFR CKD-EPI 24.7 (>60)
[2024-02-22 04:51] LABS: High Sensitivity Troponin 1 Hr 20 pg/mL (<20)
[2024-02-22] MEDS: Morphine 4 MG/ML VIAL (1 ml) IV ONE (08:35)
[2024-02-22] MEDS: NS 0.9% 1000 ml BAG 1,000 ML IV ONE (08:36)
[2024-02-22] MEDS ORDERED: Albuterol HFA INHALER 8 gm MDI INH PRN (10:28)
[2024-02-22] MEDS ORDERED: Dextrose 50% Syringe 50 ml 25 GM/50 ML SYRINGE IV PUSH PRN (10:35)
[2024-02-22 10:36] LABS: C Reactive Protein 12.39 mg/L (<8.01)
[2024-02-22] MEDS ORDERED: Naloxone Nasal Spray 4 MG/0.1 ML NASAL.SPR INTRANASAL PRN (10:37)
[2024-02-22] MEDS: HYDROmorphone 0.5 MG/0.5 ML SYRINGE IV SLOW PU PRN (13:38)
[2024-02-22 15:07] LABS: Hematocrit 44.2 % (38-53)
[2024-02-22] MEDS: NF: BUDESONIDE/GLYCOPYR/FORMOTEROL MDI (NF) INH SCH (15:37)
[2024-02-22] MEDS: SPIRIVA Respimat (tiotropium) 2.5 mcg/inh Inhaler INH SCH (15:38)
[2024-02-22 21:13] LABS: Hematocrit 40.9 % (38-53); Hemoglobin 13.8 g/dL (13.2-16.3)
[2024-02-23 04:46] LABS: Urine Appearance Clear; Urine Bilirubin Negative (Negative); Urine Blood Negative (Negative); Urine Color Light-Yellow; Urine Glucose Negative (Negative); Urine Ketones Negative (Negative); Urine Nitrite Negative (Negative); Urine Protein Negative (Negative); Urine Specific Gravity 1.012 (1.002-1.030); Urine Urobilinogen Negative (Negative)
[2024-02-23 06:06] LABS: Hematocrit 41.7 % (38-53); Hemoglobin 14.2 g/dL (13.2-16.3)
[2024-02-23] MEDS: DULoxetine DR 20 mg CAP PO SCH (09:05)
[2024-02-23 18:09] LABS: Hematocrit 41.1 % (38-53); Hemoglobin 14.2 g/dL (13.2-16.3)
[2024-02-24 09:32] LABS: ABS Basophils 0.1 10^3/uL (0.0-0.1); ABS Eosinophils 0.2 10^3/uL (0.0-0.5); ABS Monocytes 0.7 10^3/uL (0.0-1.1); ABS Neutrophils 6.4 10^3/uL (1.5-7.6); ABS Nucleated RBC 0.01 10^3/ul; Eosinophil % 2.1 %; Hematocrit 42.4 % (38-53); Hemoglobin 14.3 g/dL (13.2-16.3); Lymphocyte % 12.5 %; Mean Corpuscular Hgb Conc 33.6 g/dL (31-36); Mean Corpuscular Volume 98.1 fL (80-97); Nucleated Red Blood Cells % 0.1 %/100WBC (0.0-0.8); Platelet Count 227 10^3/uL (150-450); Red Blood Count 4.32 10^6/uL (4.06-5.63); Red Cell Distribution Width 14.9 % (12-17); White Blood Count 8.4 10^3/uL (3.6-10.2)
[2024-02-24 09:44] LABS: Calcium 9.4 mg/dL (8.6-10.3); Creatinine, Serum 2.21 mg/dL (0.67-1.17); Potassium 4.7 mmol/L (3.5-5.0); eGFR CKD-EPI 30.1 (>60)
[2024-02-24] MEDS ORDERED: Sulfur Hexaflouride MICROSPHR 25 MG VIAL ONE (13:06)
[2024-02-24 13:50] VITALS: BP 132/99
== END 2024-02-24 16:11 | disposition home health service (06) ==
LOC: EDHOLD 02:59 → ED 02:59 → SUATTDRO 09:54 → MEDTELE 11:50
PROVIDERS: ADMIT Internal Medicine; ATTEND Hospitalist

== ENCOUNTER 2024-09-05 00:16 | Inpatient (IN) ==
[2024-09-05] MEDS: Piperacillin/Tazobac 3.375 BAG 3.375 GM/100 ML BAG IV ONE ×2 (00:55→10:43)
[2024-09-05] MEDS: Morphine 10 MG/ML VIAL (1 ml) IV ONE (00:55)
[2024-09-05] MEDS: Ondansetron 4 mg VIAL 2 MG/ML 2 ml VIAL IV ONE (00:55)
[2024-09-05 01:25] LABS: ABS Basophils 0.1 10^3/uL (0.0-0.1); ABS Lymphocytes 0.5 10^3/uL (1.0-4.8); ABS Monocytes 0.8 10^3/uL (0.0-1.1); ABS Neutrophils 13.9 10^3/uL (1.5-7.6); ABS Nucleated RBC 0.01 10^3/ul; Eosinophil % 0.1 %; Hematocrit 34.4 % (38-53); Hemoglobin 11.2 g/dL (13.2-16.3); INR 1.49 (0.85-1.14); Lymphocyte % 3.4 %; Mean Corpuscular Hemoglobin 30.1 pg (27-33); Mean Corpuscular Hgb Conc 32.4 g/dL (31-36); Mean Corpuscular Volume 92.8 fL (80-97); Mean Platelet Volume 6.9 fL (7.5-11.2); Nucleated Red Blood Cells % 0.1 %/100WBC (0.0-0.8); Platelet Count 481 10^3/uL (150-450); Red Blood Count 3.71 10^6/uL (4.06-5.63); Red Cell Distribution Width 17.5 % (12-17); White Blood Count 15.3 10^3/uL (3.6-10.2)
[2024-09-05 01:53] LABS: C Reactive Protein 60.79 mg/L (<8.01)
[2024-09-05 01:54] LABS: Albumin 3.1 g/dL (3.2-5.2); Albumin/Globulin Ratio 1.3 (1-3); Calcium 8.7 mg/dL (8.6-10.3); Creatinine, Serum 1.74 mg/dL (0.67-1.17); Globulin 2.3 g/dL (2-4); Potassium 5.6 mmol/L (3.5-5.0); Total Bilirubin 1.1 mg/dL (0.2-1.0); Total Protein 5.4 g/dL (6.4-8.9); eGFR CKD-EPI 40.1 (>60)
[2024-09-05 02:35] LABS: High Sensitivity Troponin 1 Hr 19 pg/mL (<20)
[2024-09-05] MEDS: Iodixanol 320 (CONTRAST) 100 ML SDV IV ONE (03:16)
[2024-09-05 04:02] LABS: Urine Appearance Clear; Urine Bilirubin Negative (Negative); Urine Blood Negative (Negative); Urine Color Yellow; Urine Glucose Negative (Negative); Urine Ketones Negative (Negative); Urine Nitrite Negative (Negative); Urine Protein Trace (Negative); Urine Specific Gravity 1.027 (1.002-1.030); Urine Urobilinogen Negative (Negative); Urine pH 6.5 (5.0-8.0)
[2024-09-05] MEDS: Lactated Ringers 1000 ml BAG 1,000 ML IV SCH ×2 (04:35→09:58)
[2024-09-05] MEDS ORDERED: Albuterol HFA INHALER 8 gm MDI INH PRN (06:03)
[2024-09-05] MEDS ORDERED: Dextrose 50% Syringe 50 ml 25 GM/50 ML SYRINGE IV PUSH PRN (06:16)
[2024-09-05] MEDS ORDERED: Zosyn per Pharmacy NOTE FOLLOW UP SCH (07:00)
[2024-09-05] MEDS: Metoprolol Tartrate 5 mg VIAL 5 ml VIAL (1 mg/ml) IV SCH ×2 (09:56→10:07)
[2024-09-05] MEDS ORDERED: ZOSYN 3.375 GM Q8H per EXTENDED INFUSION IV SCH ×3 (10:00→15:30)
[2024-09-05] MEDS: DULoxetine DR 20 mg CAP PO SCH (10:09)
[2024-09-05] MEDS: SPIRIVA Respimat (tiotropium) 2.5 mcg/inh Inhaler INH SCH (11:10)
[2024-09-05] MEDS: Metoprolol Tartrate 5 mg VIAL 5 ml VIAL (1 mg/ml) IV ONE (11:48)
[2024-09-05 12:33] LABS: Anion Gap 8 mmol/L (2-16); Blood Urea Nitrogen 16 mg/dL (6-24); CO2 Carbon Dioxide 26 mmol/L (22-32); Calcium 8.7 mg/dL (8.6-10.3); Chloride 97 mmol/L (101-111); Creatinine, Serum 1.69 mg/dL (0.67-1.17); Glucose 120 mg/dL (70-100); Sodium 131 mmol/L (135-145); eGFR CKD-EPI 41.6 (>60)
[2024-09-05 13:14] VITALS: BP 137/86
[2024-09-05] MEDS: NS 0.9% 1000 ml BAG 1,000 ML IV SCH (13:51)
[2024-09-05] MEDS: Calcium Gluconate 1 GM/10 ML VIAL (in Pyxis) IV PUSH ONE (14:24)
[2024-09-05] MEDS: Dextrose 50% Syringe 50 ml 25 GM/50 ML SYRINGE IV PUSH ONE (14:24)
[2024-09-05] MEDS ORDERED: Enoxaparin 40 MG/0.4 ML SYR SUBCUT SCH (21:00)
== END 2024-09-05 14:45 | disposition short-term general hospital (02) | DRG 872 ==
LOC: ED 00:16 → EDHOLD 05:00 → MEDTELE 05:30
PROVIDERS: ADMIT Internal Medicine; ATTEND Hospitalist